=== PATIENT | male | born 1985 | race Caucasian/White ===

== ENCOUNTER 2025-04-24 22:50 | Observation (INO) | payer OTHER, SELFPAY ==
--- OUTSIDE RECORDS SUMMARY | 2025-04-24 05:49 | XMS_ITS | Continuity of Care Document ---
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 Name Role Phone Titi Amaya MD Unavailable Unavailable Allergies, Adverse Reactions, Alerts Substance Reaction Status Criticality No Known Allergies Active No Inform ation Procedures Procedure Date Offic/outpt E&m New Moderate Advance Directives Directive Yes / No Effective Date File Name No Information Encounters Encounter Description Practice Location Reason(s) For Visit Diagnoses Date Provider Providers Copied on Encounter [facility], [address] [address], [place], [place], [id number], [place] tel:[phone] [facility] Right upper quadrant painBiliary colic 5 Monique Walls. [address] [place] [address], [id number], [place]. tel:[phone] Offic/outpt E&m New Moderate [facility], [address] [address], [place], [place], [id number], [place] tel:[phone] [facility] GI Symptoms or Concerns (chief complaint) Epigastric painGastroesopha geal reflux disease, unspecified whether esophagitis presentHematoche latanya 5 Monique [address]s. [address] [place] [address], [id number], [place]. tel:[phone] Referring Provider: Referral Self, USE FOR SELF REFERRALS. [facility], [address] [address], [place], [id number], tel:[phone] No Information No Information Referring Provider: Medina Knox MD, [address] [place] [address] [address] [facility] [place], [address]. tel:[phone] Family History Family Member Type Diagnosis Age At Onset Mother Problem (finding) Gallbladder disease Mother Problem (finding) Diverticular disease Son Problem (finding) Asthma Immunizations Vaccine Date Status Comments SARS-COV-2 (COVID-19) vaccin e, mRNA, spike protein, LNP, preservative free, 30 mcg/0.3mL dose administered Note: [facility] bi-direct ional interface ; Source: Other Registry Influenza, [place] [facility] Kidney, subunit, quadrivalent, injectable, preservative free administered Note: [facility] bi-directional interface ; Source: Other Registry SARS-COV-2 (COVID-19) vaccin e, mRNA, spike protein, LNP, preservative free, 30 mcg/0.3mL dose administered Note: [facility] bi-direct ional interface ; Source: Other Registry SARS-COV-2 (COVID-19) vaccin e, mRNA, spike protein, LNP, preservative free, 30 mcg/0.3mL dose administered Note: [facility] bi-direct ional interface ; Source: Other Registry Influenza, live, quadrivalen t, intranasal administered Note: [facility] bi-direct ional interface ; Source: Other Registry Influenza, live, trivalent, intranasal administered Note: [facility] bi-direct ional interface ; Source: Other Registry tetanus and diphtheria toxoi ds, adsorbed, preservative free, for adult use (5 Lf of tetanus toxoid and 2 Lf of diphtheria toxoid) administered Note: [facility] bi-direct ional interface ; Source: Other Registry Influenza, split virus, trivalent, injectable, contains preservative administered Note: [facility] bi-direct ional interface ; Source: Other Registry measles, mumps and rubella v irus vaccine administered Note: [facility] bi-direct ional interface ; Source: Other Registry diphtheria, tetanus toxoids and pertussis vaccine administered Note: [facility] bi-direct ional interface ; Source: Other Registry diphtheria, tetanus toxoids and pertussis vaccine administered Note: [facility] bi-direct ional interface ; Source: Other Registry measles, mumps and rubella v irus vaccine administered Note: [facility] bi-direct ional interface ; Source: Other Registry diphtheria, tetanus toxoids and pertussis vaccine administered Note: [facility] bi-direct ional interface ; Source: Other Registry diphtheria, tetanus toxoids and pertussis vaccine administered Note: [facility] bi-direct ional interface ; Source: Other Registry diphtheria, tetanus toxoids and pertussis vaccine administered Note: [facility] bi-direct ional interface ; Source: Other Registry Payers Payer name Insurance type C[facility] [employer] [id number] Social History Type Description Quantity Date Captured Comments Sex Male Smoking Status No Information Chief Complaint And Reason For Visit No Information Reason For Referral Reason For Referral No Information Plan Of Treatment Date Type Action Status Appointment Valdo Kothari BOOKED History Of Present Illness Encounter Date Complaint History Of Prese nt Illness GI Symptoms or Concerns This is a healthy 39-year-old male with previous appendectomy at the age of 17 otherwise healthy with main concern of episodic epigastric pain.Patient notes since December 2024 has had episodic significant pain in epigastric region. In December 2024 patient late at night had significant epigastric pain that persisted for about 4 hours leading to EMS evaluation at his home. Pain subsided and did not go to the hospital.Did well until about 3 weeks ago that went to urgent care for again significant sharp pain that woke patient up from sleep. At that time patient had liver panel, CBC, lipase that was entirely normal Chem-8 panel [id number] testing was normal except for creatinine elevated 1.6. No imaging performed. H. pylori test negative.Since that time patient has been 20 mg once daily. Again we will get periodic epigastric pain episodes that will either occur at night or wake him up from sleep.Patient also notes and symptoms of early satiety GERD that is improved with elevation of the head of the bed as well as sleeping on the left side. No dysphagia.Patient has 2 bowel movements a day. Patient notes blood in the bowel movements 2 times a week. This is never been evaluated with any procedure.Patient has some mild intentional weight loss with change of eating.From a social standpoint he does not smoke or use any recreational drugs. Alcohol 1-3 times a week. Functional Status Date Functional Assessmen t No Information Instructions Date Instruction Additional Infor stella --As we discussed ev aluate your symptoms for we will proceed with imaging and endoscopic testing-- Imaging will look primarily your gallbladder as your symptoms are classic for biliary colic or gallbladder stone disease-- If ultrasound shows gallbladder stones we will send you to a general surgeon to have it removed-- We will also evaluate your upper GI symptoms as well as reflux with an upper endoscopy that can also look for other causes of pain in the upper portion of your abdomen-- Lastly, due to the blood in the bowel movements we will proceed with colonoscopy to ensure there is not a large polyp or other cause of blood in the bowel movements-- If ultrasound is negative for stones in the gallbladder I will place a clinic appointment follow-up after the endoscopy Related to Epigastric pain Assessments Type Assessment Date assessment Right upper quadrant pain assessment Biliary colic Patient Care Teams Name Effective Dates (start - stop) Status Members No Information
[2025-04-24 23:05] VITALS: BP 178/121; PULSE 90; RESP 18; TEMP 37.1; O2SAT 99; BMI 39.6
--- NOTE | 2025-04-24 23:12 | ED.GENADULT ---
HPI - General Adult General Time Seen by Provider: 23:13 <Petra Santos MD - Last Filed: 04/26/25 08:40> Date Seen: 04/24/25 <Petra Santos MD - Last Filed: 04/26/25 08:40> Chief complaint: Abdominal Pain <Petra Santos MD - Last Filed: 04/26/25 08:40> Stated complaint: Stomach pain <Petra Santos MD - Last Filed: 04/26/25 08:40> Time Seen by Provider: 04/24/25 23:12 <Petra Santos MD - Last Filed: 04/26/25 08:40> Source: patient and RN notes reviewed <Petra Santos MD - Last Filed: 04/26/25 08:40> Mode of arrival: ambulatory <Petra Santos MD - Last Filed: 04/26/25 08:40> Limitations: no limitations <Petra Santos MD - Last Filed: 04/26/25 08:40> History of Present Illness HPI narrative: This 39-year-old male is coming into the ER accompanied by his dad for recurrent epigastric pain. He states it always has been in his epigastric area. It has woke him up at night. He has found a causal relation to eating meats, specifically beef. He had pizza for lunch today with sausage and then more sausage for dinner tonight. Around 6:00 p.m. after dinner, started having epigastric pain. He did take his omeprazole at 6:00 p.m. which she has been taking. He subsequently took Tylenol, Tums and then Gas-X. His pain has largely subsided. It did last about 4 hours. He is scheduled to have an EGD and colonoscopy with [facility] on May 07. He has been having problems for about 3 weeks, originally presented to an urgent care. They did not think it was is gallbladder causes symptoms were epigastric, was given omeprazole, had labs. He did have a subsequent stool antigen test for H pylori which was negative. He did have an ultrasound of his gallbladder after seeing GI and was negative. He states the GI doctor talked about MRI. We did review that I do not have capacity for MRI and we did review CT imaging. His mom has had her gallbladder out. His only surgery is appendectomy. There are no fevers or chills, no nausea or vomiting, no changes in stools. He does have a long history of GERD which she is typically used a wedge pillow and Tums nightly. He has had some small amounts of bright red blood in his stools for years and he states that [facility] is aware of this. There is a family history of heart disease, hypertension and high ferritin levels which he thinks maybe hemochromatosis. He has never noted any radiation of pain into his chest, no associated palpitations, no irregular heartbeat, no respiratory symptoms with this. <Petra Santos MD - Last Filed: 04/26/25 08:40> Related Data Home medications: Home Medications ?Medication ?Instructions ?Recorded ?Confirmed calcium carbonate (Antacid Ext Str 600 mg PO DAILY 04/24/25 04/24/25 (calcium carb)) omeprazole 20 mg capsule,delayed 20 mg PO DAILY 04/24/25 04/24/25 release simethicone 250 mg capsule (Gas 250 mg PO DAILY PRN 04/24/25 04/24/25 Relief (simethicone)) Previous Rx's ?Medication ?Instructions ?Recorded oxycodone 5 mg capsule 5 mg PO Q6H PRN pain #7 caps 04/25/25 <Petra Santos MD - Last Filed: 04/26/25 08:40> Allergies/adverse reactions: Allergies Allergy/AdvReac Type Severity Reaction Status Date / Time cefaclor (From Ceclor) AdvReac Unknown Verified 04/24/25 23:16 <Petra Santos MD - Last Filed: 04/26/25 08:40> Review of Systems Status of ROS: Reports: 6 or more systems reviewed and unremarkable except as noted in History and below <Petra Santos MD - Last Filed: 04/26/25 08:40> [facility] Medical History: Medical History (Updated 04/25/25 @ 15:29 by Justine M DeBus, PA-C) GERD (gastroesophageal reflux disease) ?K21.9 - Gastro-esophageal reflux disease without esophagitis (ICD-10) Obesity (BMI 35.0-39.9 without comorbidity) ?E66.9 - Obesity, unspecified (ICD-10) Elevated blood pressure reading ?R03.0 - Elevated blood-pressure reading, without diagnosis of hypertension (ICD-10) <Petra Santos MD - Last Filed: 04/26/25 08:40> Surgical History: Surgical History (Updated 04/24/25 @ 23:30 by Petra Santos MD) Status post appendectomy ?Z90.49 - Acquired absence of other specified parts of digestive tract (ICD-10) <Petra Santos MD - Last Filed: 04/26/25 08:40> Social History: Social History (Updated 04/25/25 @ 13:42 by Tosin Stoll MD) Narrative: 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 He does not smoke. He drinks alcohol rarely What is your current living situation?: I presently have a place to live Problems where you live: no known problems Problems where you live details: no known problems In the past 12 months, utilities in danger of being shut off: no In past 12 months, lack of transportation kept you from medical appts, meetings, work, or getting things needed for daily living: no In the past 12 mos, have been you worried that your food would run out before you had money to buy more?: never true In the past 12 mos, the food you bought just didn't last and you didn't have money to buy more?: never true Smoking Status: Never smoker Do you use any of these nicotine containing products: None Second hand tobacco smoke exposure: No How often do you have a drink containing alcohol: 2-3 times a week Alcohol type: hard liquor How many standard drinks containing alcohol do you have on a typical day: 1 or 2 How often do you have six or more drinks on one occasion: Never AUDIT-C Alcohol total score: 3 Non-prescribed substance use: denies use How often does anyone, including family, friends and others, physically hurt you: never How often does anyone, including family, friends and others, insult or talk down to you: never How often does anyone, including family, friends and others, threaten you with harm: never How often does anyone, including family, friends and others, scream or curse at you: never service: No <Petra Santos MD - Last Filed: 04/26/25 08:40> Exam Const: Vital Signs, click to edit/add: Vital Signs - 24 hr 04/24/25 23:05 04/24/25 23:40 04/25/25 00:00 Temperature 98.7 F Pulse Rate [Left P ulse Oximeter] 90 82 Respiratory Rate 18 20 Blood Pressure [Ri ght Upper Arm] 178/121 H 164/94 H Pulse Oximetry 99 99 100 Oxygen Delivery Me thod Room Air Room Air 04/25/25 00:30 Temperature Pulse Rate [Left P ulse Oximeter] 88 Respiratory Rate 16 Blood Pressure [Ri ght Upper Arm] 154/92 H Pulse Oximetry 97 Oxygen Delivery Me thod Room Air Melani is a 39-year-old male that is alert, interactive, no apparent distress. Sclera clear, conjugate gaze, symmetrical facial function. Speak in complete sentences. Neck thicker but supple, no adenopathy. Lungs are clear, good air entry, no wheeze or crackles, no tachypnea, no accessory muscle use. CV regular rate and rhythm, no murmur, normal S1-S2, no S3-S4. Abdomen is currently soft, nontender, nondistended, no organomegaly, rebound or guarding, normal bowel sounds. Note he does point directly to the epigastric area where it does bother him when the pain is there. Patient was ambulatory into the ED of his own accord. Note no jaundice, no scleral icterus. <Petra Santos MD - Last Filed: 04/26/25 08:40> Vital Signs, click to edit/add: Vital Signs - 24 hr 04/24/25 23:05 04/24/25 23:40 04/25/25 00:00 Temperature 98.7 F Pulse Rate [Left P ulse Oximeter] 90 82 Respiratory Rate 18 20 Blood Pressure [Ri ght Upper Arm] 178/121 H 164/94 H Pulse Oximetry 99 99 100 Oxygen Delivery Me thod Room Air Room Air 04/25/25 00:30 Temperature Pulse Rate [Left P ulse Oximeter] 88 Respiratory Rate 16 Blood Pressure [Ri ght Upper Arm] 154/92 H Pulse Oximetry 97 Oxygen Delivery Me thod Room Air <Nusrat Tim MD - Last Filed: 04/25/25 02:48> Documenting provider has reviewed patient's vital signs: yes <Petra Santos MD - Last Filed: 04/26/25 08:40> Course Course ED Course: Patient declines any need for any pain medicine. Did review with him that there still can be biliary dysfunction without stone pathology. We discussed a HIDA scan could be done to evaluate that but is not an emergent test. That is done during daytime hours and is scheduled test. He does want to proceed with a CT. We will do CT abdomen pelvis with IV contrast. Will check full complement of labs. Nursing staff did do an EKG on arrival and that shows no abnormalities of ischemia or infarct. Will also do a troponin. Given his symptoms have been present for over 4 hours now, with improvement, do think a solitary troponin should rule out active ischemia. He understands that even with a normal EKG and troponin tonight, cardiac disease is not completely ruled out. I do feel that his symptoms are much more likely to be bilingual inside sales representative of GI pathology. We did review that it could be something within the stomach or early small-bowel/duodenum. There is a potential for this to be some type of vascular anomaly, not likely to be pancreatitis given that it is resolving rather quickly on its own. <Petra Santos MD - Last Filed: 04/26/25 08:40> Reevaluation(s) Time of Reevaluation #1: 00:23 <Petra Santos MD - Last Filed: 04/26/25 08:40> Reevaluation #1: Updated patient on his CT findings. We did review that he really should pursue further evaluation and management of his reflux as an outpatient at some point. There is also edema in the gallbladder wall. We do not have his liver functions back yet. His white blood count is normal but I do wonder if this could be acalculous cholecystitis developing for him. We are proceeding with a repeat right upper quadrant ultrasound tonight. He does notes that he is getting pain radiating into his upper back now. He has noted that with past episodes that have been more severe. His back is bothering him. Re palpation of his right upper quadrant does reveal some mild tenderness but no rebound or guarding. It is more right upper quadrant than epigastric on my palpation at this time. We did discuss pain management, he would agree to some Toradol as his referred pain into his back is pretty uncomfortable. <Petra Santos MD - Last Filed: 04/26/25 08:40> Time of Reevaluation #2: 02:45 <Nusrat Tim MD - Last Filed: 04/25/25 02:48> Reevaluation #2: Patient was signed out to me by Dr. Hill, please see her note for full details. I followed up on his labs which are all unremarkable including LFTs and lipase. I also reviewed his right upper quadrant ultrasound which is read by Radiology as showing a thickened gallbladder of 5 mm in otherwise no significant findings. I talked with him, he has been having these episodes of fairly severe postprandial epigastric pain with some radiation to the shoulder blade since December. Binh's episode started at 6:00 p.m., as of 3:00 a.m. he is still having some pain although he does not have a concerning abdominal exam. Review of his records from [facility] showed that his ultrasound was read as completely normal on April 23. He has findings of some wall thickening binh, and overall I think his presentation is consistent with likely development of cholecystitis. As such I recommended admission to the hospital, assessment by surgery in the morning. Will keep him NPO, Zosyn IV ordered. He is comfortable with that plan. Discussed with the hospitalist and I will contact General surgery in the morning. <Nusrat Tim MD - Last Filed: 04/25/25 02:48> Vital Signs Vital signs: Initial Vital Signs Temperature 98.7 F 04/24/25 23:05 Temperature Source Temporal Artery Scan 04/24/25 23:05 Pulse Rate 90 04/24/25 23:05 Respiratory Rate 18 04/24/25 23:05 Blood Pressure 178/121 H 04/24/25 23:05 Blood Pressure Mean 140 H 04/24/25 23:05 Blood Pressure Position Sitting 04/24/25 23:05 Pulse Oximetry 99 04/24/25 23:05 Oxygen Delivery Method Room Air 04/24/25 23:05 Vital Signs Temperature 98.7 F 04/24/25 23:05 Pulse Rate 90 04/24/25 23:05 Respiratory Rate 18 04/24/25 23:05 Blood Pressure 178/121 H 04/24/25 23:05 Pulse Oximetry 99 04/24/25 23:05 Oxygen Delivery Method Room Air 04/24/25 23:05 Temperature 98.1 F 04/25/25 11:00 Pulse Rate 72 04/25/25 11:00 Respiratory Rate 16 04/25/25 11:00 Blood Pressure 168/114 H 04/25/25 11:00 Pulse Oximetry 95 04/25/25 11:00 Oxygen Delivery Method Room Air 04/25/25 11:00 <Petra Santos MD - Last Filed: 04/26/25 08:40> Initial Vital Signs Temperature 98.7 F 04/24/25 23:05 Temperature Source Temporal Artery Scan 04/24/25 23:05 Pulse Rate 90 04/24/25 23:05 Respiratory Rate 18 04/24/25 23:05 Blood Pressure 178/121 H 04/24/25 23:05 Blood Pressure Mean 140 H 04/24/25 23:05 Blood Pressure Position Sitting 04/24/25 23:05 Pulse Oximetry 99 04/24/25 23:05 Oxygen Delivery Method Room Air 04/24/25 23:05 Vital Signs Temperature 98.7 F 04/24/25 23:05 Pulse Rate 90 04/24/25 23:05 Respiratory Rate 18 04/24/25 23:05 Blood Pressure 178/121 H 04/24/25 23:05 Pulse Oximetry 99 04/24/25 23:05 Oxygen Delivery Method Room Air 04/24/25 23:05 Temperature 98.1 F 04/25/25 11:00 Pulse Rate 72 04/25/25 11:00 Respiratory Rate 16 04/25/25 11:00 Blood Pressure 168/114 H 04/25/25 11:00 Pulse Oximetry 95 04/25/25 11:00 Oxygen Delivery Method Room Air 04/25/25 11:00 <Nusrat Tim MD - Last Filed: 04/25/25 02:48> Medications Administered Medications: Discontinued Medications Generic Name Dose Route Start Last Admin Trade Name Freq PRN Reason Stop Dose Admin Ketorolac Tromethamine 15 mg 04/25/25 00:25 04/25/25 00:28 Ketorolac 15 Mg/Ml Inj IVP 04/25/25 00:26 15 mg ONCE ONE Administration Omeprazole 40 mg 04/25/25 07:00 04/25/25 07:04 Omeprazole [address] PO 40 mg DAILY@0700 RG Administration Ondansetron HCl 4 mg 04/25/25 02:44 04/25/25 04:28 Ondansetron 2 Mg/Ml Inj IVP 04/25/25 02:45 Not Given ONCE ONE Sodium Chloride 5 ml 04/25/25 09:00 04/25/25 08:41 Sodium Chloride 0.9 % (Flush) 10 Ml Syringe IVF 5 ml BID RG Administration <Petra Santos MD - Last Filed: 04/26/25 08:40> Discontinued Medications Generic Name Dose Route Start Last Admin Trade Name Freq PRN Reason Stop Dose Admin Ketorolac Tromethamine 15 mg 04/25/25 00:25 04/25/25 00:28 Ketorolac 15 Mg/Ml Inj IVP 04/25/25 00:26 15 mg ONCE ONE Administration Omeprazole 40 mg 04/25/25 07:00 04/25/25 07:04 Omeprazole [address] PO 40 mg DAILY@0700 RG Administration Ondansetron HCl 4 mg 04/25/25 02:44 04/25/25 04:28 Ondansetron 2 Mg/Ml Inj IVP 04/25/25 02:45 Not Given ONCE ONE Sodium Chloride 5 ml 04/25/25 09:00 04/25/25 08:41 Sodium Chloride 0.9 % (Flush) 10 Ml Syringe IVF 5 ml BID RG Administration <Nusrat Tim MD - Last Filed: 04/25/25 02:48> Medical Decision Making Lab Data Lab results reviewed: Yes I reviewed the patient's lab results <Petra Santos MD - Last Filed: 04/26/25 08:40> Labs: Lab Results 04/24/25 Range/Units 23:35 WBC 10.54 (4.50-11.00) K/uL RBC 5.18 (4.30-5.90) m/uL Hgb 16.1 (13.5-17.5) gm/dL Hct 45.1 (37.0-53.0) % MCV 87 (80-100) fL MCH 31 (26-34) pg MCHC 36 (32-36) gm/dL RDW Coeff of Thai 12.4 (11.5-15.5) % Plt Count 176 (140-440) K/uL Neut % (Auto) 76.1 H (42.0-72.0) % Lymph % (Auto) 15.1 L (20-44) % Bradford % (Auto) 6.1 (0.0-11.0) % Eos % (Auto) 1.4 (0.0-7.0) % Baso % (Auto) 0.4 (0.0-3.0) % Neut # (Auto) 8.00 H (1.7-7.0) K/uL Lymph # (Auto) 1.60 (0.90-2.90) K/uL Bradford # (Auto) 0.60 (0.00-0.90) K/UL Eos # (Auto) 0.15 (0.00-0.50) K/uL Baso # (Auto) 0.04 (0.00-0.30) K/uL Abs Immat Gran (auto) 0.10 (0.00-0.30) K/uL Imm/Tot Granulo (auto) 0.9 % Sodium 140 (135-149) mmol/L Potassium 3.6 (3.6-5.1) mmol/L Chloride 103 (96-114) mmol/L Carbon Dioxide 26 (20-32) mmol/L Anion Gap 11 (7-15) mEq/L BUN 22 (5-24) mg/dL Creatinine 1.2 (0.5-1.5) mg/dL Estimated Creat Clear 93.40 Estimated GFR 79 ml/min Glucose 120 H (60-115) mg/dL Lactate 1.3 (0.5-1.9) mmol/L Calcium 9.6 (8.4-10.6) mg/dL Total Bilirubin 1.2 (0.1-1.5) mg/dL Direct Bilirubin 0.1 (0.0-0.5) mg/dL AST 34 (12-35) U/L ALT 50 (4-50) U/L Alkaline Phosphatase 47 (40-150) U/L Troponin I < 0.01 (0.01-0.04) ng/mL C-Reactive Protein < 0.5 L (0.5-1.0) mg/dL Total Protein 7.6 (6.0-8.3) g/dL Albumin 4.8 (3.3-5.0) g/dL Lipase 170 (23-300) U/L <Perta Santos MD - Last Filed: 04/26/25 08:40> Lab Results 04/24/25 Range/Units 23:35 WBC 10.54 (4.50-11.00) K/uL RBC 5.18 (4.30-5.90) m/uL Hgb 16.1 (13.5-17.5) gm/dL Hct 45.1 (37.0-53.0) % MCV 87 (80-100) fL MCH 31 (26-34) pg MCHC 36 (32-36) gm/dL RDW Coeff of Thai 12.4 (11.5-15.5) % Plt Count 176 (140-440) K/uL Neut % (Auto) 76.1 H (42.0-72.0) % Lymph % (Auto) 15.1 L (20-44) % Bradford % (Auto) 6.1 (0.0-11.0) % Eos % (Auto) 1.4 (0.0-7.0) % Baso % (Auto) 0.4 (0.0-3.0) % Neut # (Auto) 8.00 H (1.7-7.0) K/uL Lymph # (Auto) 1.60 (0.90-2.90) K/uL Bradford # (Auto) 0.60 (0.00-0.90) K/UL Eos # (Auto) 0.15 (0.00-0.50) K/uL Baso # (Auto) 0.04 (0.00-0.30) K/uL Abs Immat Gran (auto) 0.10 (0.00-0.30) K/uL Imm/Tot Granulo (auto) 0.9 % Sodium 140 (135-149) mmol/L Potassium 3.6 (3.6-5.1) mmol/L Chloride 103 (96-114) mmol/L Carbon Dioxide 26 (20-32) mmol/L Anion Gap 11 (7-15) mEq/L BUN 22 (5-24) mg/dL Creatinine 1.2 (0.5-1.5) mg/dL Estimated Creat Clear 93.40 Estimated GFR 79 ml/min Glucose 120 H (60-115) mg/dL Lactate 1.3 (0.5-1.9) mmol/L Calcium 9.6 (8.4-10.6) mg/dL Total Bilirubin 1.2 (0.1-1.5) mg/dL Direct Bilirubin 0.1 (0.0-0.5) mg/dL AST 34 (12-35) U/L ALT 50 (4-50) U/L Alkaline Phosphatase 47 (40-150) U/L Troponin I < 0.01 (0.01-0.04) ng/mL C-Reactive Protein < 0.5 L (0.5-1.0) mg/dL Total Protein 7.6 (6.0-8.3) g/dL Albumin 4.8 (3.3-5.0) g/dL Lipase 170 (23-300) U/L <Nusrat Tim MD - Last Filed: 04/25/25 02:48> Imaging Data CT scan - abdomen: Attestation: I have reviewed the pertinent imaging results. <Petra Santos MD - Last Filed: 04/26/25 08:40> Radiologist's impression: Patient: MELANI COSTA Facility:?[facility] Patient ID:?[id number] Site Patient ID:?[id number]. Site :?1985 Study:?CT-Abdomen/Pelvis W/ISOVUE 370 147CC-04/24/2025 11:51:10 PM Ordering Physician:?Tom Lambert Final Report: INDICATION: Rec epigastric abdominal pain TECHNIQUE: CT Abdomen and pelvis with i.v. contrast. Coronal and sagittal reformats were obtained. CONTRAST: 147 mL Isovue 370 COMPARISON: None FINDINGS: Lower chest: There is a 1 mm nodule present in the anterior right lower lobe, too small to further characterize. Liver: Unremarkable. Spleen: Unremarkable. Pancreas: Unremarkable. Gallbladder: Mild gallbladder wall edema is seen. Kidney: Unremarkable. No kidney or ureteral stones or obstruction seen. Adrenal: Unremarkable. Bowel: The distal esophagus is fluid-filled and mildly distended, likely due to gastroesophageal reflux. Seyl-bl-qucvobtx fluid distention of the stomach is noted. There is a gasless density near the ileocecal valve without any apparent obstruction of the terminal ileum. This is most likely due to small bowel contents incompletely mixing with cecal stool. Previous appendectomy noted with no significant appendiceal stump identified. The appendix is not identified. Vascular: Unremarkable. Lymph: Unremarkable. Peritoneum: Unremarkable. No pneumoperitoneum is seen. No significant ascites is noted. Pelvis: Unremarkable. Soft tissue: Unremarkable. Bone: Unremarkable for age. IMPRESSIONS: 1. The distal esophagus is fluid-filled and mildly distended, likely due to gastroesophageal reflux. 2. Mild gallbladder wall edema is seen. Assessment with ultrasound may be helpful to exclude cholecystitis. Dictated by Zeus Thomas MD @ 04/24/2025 11:57:51 PM Please note that all CT scans at this facility use dose modulation, iterative reconstruction, and/or weight-based dosing when appropriate to reduce radiation dose to as low as reasonably achievable. Dictated by: Zeus Thomas MD @ 04/24/2025 23:58:00 (Electronic Signature) <Petra Santos MD - Last Filed: 04/26/25 08:40> US - abdomen: Attestation: I have reviewed the pertinent imaging results. <Nusrat Tim MD - Last Filed: 04/25/25 02:48> Radiologist's impression: Patient: Melani Costa MR#: [id number] : 1985 Acct:[id number] Loc: ED Service Date: 04/25/[address]: Ordering Physician: Nusrat Tim M.D. Date of Service: 04/25/25 Procedure(s): US abdomen limited Accession Number(s): [id number] cc: Nusrat Tim M.D.; Provider,Not a Local~ For Patients: As a result of the Century Cures Act, medical imaging exams and procedure reports are released immediately into your electronic medical record. You may view this report before your referring provider. If you have questions, please contact your health care provider. INDICATION: Abdominal pain TECHNIQUE: Ultrasound abdomen limited. Sonographic images of the right upper quadrant were obtained using gómez-scale and color Doppler images. COMPARISON: 04/24/2025 FINDINGS: The sensitivity and specificity of the exam are moderately limited by the patient`s body habitus and overlying bowel gas. Liver: The liver parenchyma is normal in echotexture. Gallbladder: No gallstones or sludge seen in the lumen. Mild gallbladder wall thickening is noted measuring 5 mm. No pericholecystic fluid is present. No sonographic Wenier???s sign is present. Common bile duct: The common bile duct is not well visualized. No intrahepatic biliary ductal dilatation seen. Pancreas: The visualized portions of the pancreatic head and body are normal in appearance. Right Kidney: 12 cm. No hydronephrosis or ureterectasis is seen. Vascular: The visualized abdominal aorta and IVC are unremarkable. The visualized portal vein is patent with normal anterograde flow. IMPRESSION: 1. Mild gallbladder wall thickening is noted measuring 5 mm. This is nonspecific and can be seen with acute or chronic cholecystitis, hepatitis, cirrhosis, or congestive heart failure and clinical correlation is recommended. <Nusrat Tim MD - Last Filed: 04/25/25 02:48> ECG Data Attestation: I personally reviewed and interpreted this ECG as follows: (Normal sinus rhythm, 71 beats per minute. No evidence for any ischemia or infarct.) <Petra Santos MD - Last Filed: 04/26/25 08:40> Prior ECG tracings: not available for review <Petra Santos MD - Last Filed: 04/26/25 08:40> Discharge Plan Discharge Clinical Impression: Cholecystitis <Petra Santos MD - Last Filed: 04/26/25 08:40> Patient Disposition: Admitted As Observation <Petra Santos MD - Last Filed: 04/26/25 08:40> Condition: Stable <Petra Santos MD - Last Filed: 04/26/25 08:40> Activity Level: Activity as Tolerated <Petra Santos MD - Last Filed: 04/26/25 08:40> Activity as Tolerated <Nusrat Tim MD - Last Filed: 04/25/25 02:48> Discharge Diet: Other <Petra Santos MD - Last Filed: 04/26/25 08:40> Other <Nusrat Tim MD - Last Filed: 04/25/25 02:48> Diet Detail: bland <Petra Santos MD - Last Filed: 04/26/25 08:40> bland <Nusrat Tim MD - Last Filed: 04/25/25 02:48>
--- NOTE | 2025-04-24 23:26 | CRLHL7_ITS ---
For Patients: As a result of the Century Cures Act, medical imaging exams and procedure reports are released immediately into your electronic medical record. You may view this report before your referring provider. If you have questions, please contact your health care provider. INDICATION: Rec epigastric abdominal pain TECHNIQUE: CT Abdomen and pelvis with i.v. contrast. Coronal and sagittal reformats were obtained. CONTRAST: 147 mL Isovue 370 COMPARISON: None FINDINGS: Lower chest: There is a 1 mm nodule present in the anterior right lower lobe, too small to further characterize. Liver: Unremarkable. Spleen: Unremarkable. Pancreas: Unremarkable. Gallbladder: Mild gallbladder wall edema is seen. Kidney: Unremarkable. No kidney or ureteral stones or obstruction seen. Adrenal: Unremarkable. Bowel: The distal esophagus is fluid-filled and mildly distended, likely due to gastroesophageal reflux. [id number] fluid distention of the stomach is noted. There is a gasless density near the ileocecal valve without any apparent obstruction of the terminal ileum. This is most likely due to small bowel contents incompletely mixing with cecal stool. Previous appendectomy noted with no significant appendiceal stump identified. The appendix is not identified. Vascular: Unremarkable. Lymph: Unremarkable. Peritoneum: Unremarkable. No pneumoperitoneum is seen. No significant ascites is noted. Pelvis: Unremarkable. Soft tissue: Unremarkable. Bone: Unremarkable for age. IMPRESSIONS: 1. The distal esophagus is fluid-filled and mildly distended, likely due to gastroesophageal reflux. 2. Mild gallbladder wall edema is seen. Assessment with ultrasound may be helpful to exclude cholecystitis. Dictated by Zeus Thomas MD @ 04/24/2025 11:57:51 PM Please note that all CT scans at this facility use dose modulation, iterative reconstruction, and/or weight-based dosing when appropriate to reduce radiation dose to as low as reasonably achievable. Dictated by: Zeus Thomas MD @ 04/24/2025 23:58:00 (Electronically Signed)
[2025-04-24 23:40] VITALS: O2SAT 99
[2025-04-24 23:42] LABS: Lactate* 1.3 mmol/L (0.5-1.9)
[2025-04-24 23:44] LABS: Basophils Absolute Auto 0.04 K/uL (0.00-0.30); Basophils Percent Auto 0.4 % (0.0-3.0); Eosinophils Absolute Auto 0.15 K/uL (0.00-0.50); Eosinophils Percent Auto 1.4 % (0.0-7.0); Hematocrit 45.1 % (37.0-53.0); Hemoglobin* 16.1 gm/dL (13.5-17.5); Immature Granulocytes Pct Auto 0.9 %; Lymphocytes Percent Auto 15.1 % (20-44); Mean Corpuscular HGB Conc 36 gm/dL (32-36); Mean Corpuscular Hemoglobin 31 pg (26-34); Mean Corpuscular Volume 87 fL (80-100); Monocytes Percent Auto 6.1 % (0.0-11.0); Neutrophils Percent Auto 76.1 % (42.0-72.0); Platelet Count* 176 K/uL (140-440); RDW Coefficient of Variation % 12.4 % (11.5-15.5); Red Blood Count 5.18 m/uL (4.30-5.90); Slide Review Reflex No; White Blood Count* 10.54 K/uL (4.50-11.00)
--- OUTSIDE RECORDS SUMMARY | 2025-04-24 23:53 | XMS_ITS | Clinical Summary ---
Author Organization [facility] Address [address], [place] [address] Care Team Providers Care Family Services Worker Name Role Phone Unavailable Primary Care Provider Unavailabl e Source Comments You are receiving this document as you are listed as the primary care provider,follow-up provider, or the patient has been referred to you for consultation.This is in compliance with the Medicare and[facility] Cent[facility]aid EHR Incentive Program,which states Providers who transition their patient to another setting of careor provider of care or refers their patient to another provider of care shouldprovide summary care record for each transition of care or referral. [facility] Allergies No known active allergies Medications WEGOVY 1 MG/0.5ML pen injection Inject 0.5 mL (1 mg) subcutaneously once every week. 04/06/20 23 Active ondansetron (ZOFRAN-ODT) 8 MG disintegrating tablet Take 1 Tablet (8 mg) by mouth every 8 hours. 05/18/20 23 Active OZEMPIC, 0.25/0.5 MG/DOSE, 2 MG/1.5ML injection Inject subcutaneously. 01/12/20 23 Active WEGOVY 1.7 MG/0.75ML pen injection SMARTSI.7 Milligram(s) SUB-Q Once a Week 05/08/20 23 Active benzonatate (TESSALON) 200 MG capsule Take 1 Capsule (200 mg) by mouth. 01/31/20 24 Active Active Problems No known active problems Immunizations Immunization Administration Dates Next Due Influenza LAIV3 2-49 years (Flumist) 12/01/2012 Social History Tobacco Use Types Packs/Day Years Used Date Smoking Tobacco: Never Smokeless Tobacco: Never Tobacco Cessation:Counseling Given: Not Answered Sex and Gender Information Value Date Recorded Sex Assigned at Not on file Legal Sex Male 5:15 AM CDT Gender Identity Not on file Sexual Orientation Not on file Last Filed Vital Signs Vital Sign Reading Time Taken Comments Blood Pressure 187/99 02/03/2024 12:49 PM CDT Pulse 76 02/03/2024 12:49 PM CDT Temperature 37 C (98.6 F) 02/03/2024 12:49 PM CDT Respiratory Rate 18 02/03/2024 12:49 PM CDT Oxygen Saturation 99% 02/03/2024 12:49 PM CDT Inhaled Oxygen Concentration - - Weight - - Height - - Body Mass Index - - Plan of Treatment Health Maintenance Due Date Last Done Comments Hep C Screening (Preventive Services) 1985 HIV Screening (Preventive Services) 2001 Adult Preventive Visit 2003 HepB Vaccine (1) 2004 DTaP/Tdap/Td Vaccine (6 - Tdap) 08/21/2010 08/20/2010, 11/27/1997, 06/24/1990, Additional history exists Cholesterol 2020 COVID-19 Vaccine ( season) 2024 09/07/2021, 03/08/2021, 02/15/2021 Influenza Vaccine (Season Ended) 2025 09/07/2021, 09/25/2015, 12/01/2012, Additional history exists Zoster/Shingles Vaccine (1 of 2) 2035 IPV (Polio) Vaccine Completed 06/24/1990, 07/24/1987, 03/27/1986, Additional history exists HPV Vaccine Aged Out No longer eligi ble based on patient's age to complete this topic HepA Vaccine Aged Out No longer eligi ble based on patient's age to complete this topic Hib Vaccine Aged Out No longer eligi ble based on patient's age to complete this topic MCV4 Vaccine Aged Out No longer eligi ble based on patient's age to complete this topic Meningococcal B Vaccine Aged Out No l onger eligible based on patient's age to complete this topic Pneumococcal Vaccine Aged Out No long er eligible based on patient's age to complete this topic Insurance [employer] RETIRE [facility] [place] [address]
--- OUTSIDE RECORDS SUMMARY | 2025-04-24 23:53 | XMS_ITS | Clinical Summary ---
Author Organization [facility] Address [address] [place] [address] Care Team Providers Care Wind Up Worker Name Role Phone No Ref-Primary, Physician Primary Care Provider Allergies No known active allergies Social History Tobacco Use Types Packs/Day Years Used Date Smoking Tobacco: Never Assessed Adolescent Education Answer Date Record ed Getting School Help Needed Not on file 08/13 Sex and Gender Information Value Date Recorded Sex Assigned at Not on file Legal Sex Male 11:54 AM CDT Gender Identity Not on file Sexual Orientation Not on file Last Filed Vital Signs Vital Sign Reading Time Taken Comments Blood Pressure 132/81 06/17/2019 1:32 PM CDT Pulse 77 06/17/2019 1:32 PM CDT Temperature 36.7 C (98 F) 06/17/2019 12:02 PM CDT Respiratory Rate 16 06/17/2019 12:02 PM CDT Oxygen Saturation 96% 06/17/2019 1:33 PM CDT Inhaled Oxygen Concentration - - Weight - - Height - - Body Mass Index - - Plan of Treatment Not on file Insurance [employer] Advance Directives For more information, please contact: [phone] Documents on File Type Date Recorded Patient Janitorial Assistant Expl anation Advance Directives and Living Will 07/14/2023 Health Care Directiv e 06/25/2023 Healthcare Agents on File Name Relationship Healthcare Agent [facility] Communication Og Pickett Health Care Agent Care Teams Wind Up Worker Relationship Specialty Start Date End Date No Ref-Primary, Physician PCP - General 06/17/19
--- OUTSIDE RECORDS SUMMARY | 2025-04-24 23:53 | XMS_ITS | Clinical Summary ---
Author Organization [facility] Address [address] [place] [address] Care Team Providers Care Charter Boat Operator Name Role Phone Pcp, No Primary Care Provider Unavailabl e Allergies Active Allergy Reactions Criticality Noted Date Comments Cefaclor *Unknown - Childhood Rxn 08/19/2018 Medications methylPREDNISolo ne (MEDROL, EZIO,) 4 mg tabletIndication s:Fever, unspecified fever cause,SOB (shortness of breath),Bronchit is Use as directed 1 Package 8 Active albuterol HFA 90 mcg/actuation inhalerIndicatio ns:Bronchitis,SO B (shortness of breath) Inhale 1-2 Puffs by mouth every 4 hours if needed. 1 Inhaler 8 Active omeprazole 20 mg tabletIndication s:Upper abdominal pain Take 1 Tablet (20 mg) by mouth once daily before a meal. 60 Tablet 5 Active Active Problems No known active problems Encounters Date Type Department Care Team Description 04/20/2025 1:45 PM CDT Ancillary Procedure [facility] [address] [facility] [address] [place] [address] 04/19/2025 Travel 04/17/2025 Transcribe Orders [facility] [place] [phone] Titi Regalado MD 03/28/2025 3:55 PM CDT Office Visit [email or web address] Urgent Care [address] [facility] [address] [place] [address] Medina Knox MD Abdominal Pain; Blood In Stool 03/28/2025 3:00 PM CDT Orders Only [facility] [address] [place] [address] Lab 03/28/2025 Travel from Last 3 Months Social History Tobacco Use Types Packs/Day Years Used Date Smoking Tobacco: Never Smokeless Tobacco: Never Alcohol Use Standard Drinks/Week Comments Yes 2 (1 standard drink = 0.6 oz pur e alcohol) Social Connections Answer Date Recorded Do you often feel lonely or isolated from those around you? 0 03/28/2025 Financial Resource Strain Answer Date R ecorded Difficulty of Paying Living Expenses 3 03/28/2025 Difficulty of Paying Living Expenses Not on file 03/28/2025 Food Insecurity Answer Date Recorded Do you worry your food will run out before you are able to buy more? 1 03/28/2025 Transportation Needs Answer Date Record ed Does lack of transportation keep you from medica l appointments? 1 03/28/2025 Does lack of transportation keep you from work, meetings or getting things that you need? 1 03/28/2025 Housing Stability Answer Date Recorded What is your housing situation today? 1 03/28/2025 Utilities Answer Date Recorded Do you have trouble paying f or utilities (for example, heat, electricity, water, phone)? 1 03/28/2025 Sex and Gender Information Value Date Recorded Sex Assigned at Male 03/28/2025 5:57 PM CDT Legal Sex Male 2:24 PM CDT Gender Identity Male 03/28/2025 5:57 PM CDT Sexual Orientation Straight 03/28/2025 5: 57 PM CDT Obstetrics History Last Filed Vital Signs Vital Sign Reading Time Taken Comments Blood Pressure 166/106 03/28/2025 4:10 PM CDT Pulse 76 03/28/2025 4:10 PM CDT Temperature 36.1 C (96.9 F) 03/28/2025 4:00 PM CDT Respiratory Rate 16 03/28/2025 4:00 PM CDT Oxygen Saturation 99% 03/28/2025 4:00 PM CDT Inhaled Oxygen Concentration - - Weight 140.4 kg (309 lb 9.6 oz) 03/28/2025 4:00 PM CDT Height 185.4 cm (6' 1) 03/28/2025 4:00 PM CDT Body Mass Index 40.85 03/28/2025 4:00 PM CDT Plan of Treatment Health Maintenance Due Date Last Done Comments Tdap 1996 Depression screening for age 12+ 1997 HIV for age 15-65 2000 Hepatitis C screening for ag e 18-79 2003 Hepatitis B series for 19+ ( 1 of 3 - 19+ 3-dose series) 2004 Tetanus booster 2005 Lipids for age 35-44 2020 COVID-19 vaccine series ( season) 2024 09/07/2021, 03/08/2021, 02/15/2021 Influenza Vaccine (Season Ended) 2025 BMI (ht and wt on same day) for age 18+ 03/28/2026 03/28/2025, 08/19/2018 Pneumococcal series for age 6-49 Aged Out No longer eligible b ased on patient's age to complete this topic Procedures Procedure Name Priority Date/Time Associated Diagnosis Comments US ABDOMEN LIMITED GALLBLADDER Routine 04/20/2025 1:44 PM CDT Epigastric pain Gastroesophageal reflux disease, unspecified whether esophagitis present Hematochezia H PYLORI ANTIGEN,STOOL Routine 03/28/2025 11:00 PM CDT Upper abdominal pain MT BLOOD COUNT COMPLETE AUTO&AUTO DIFRNTL WBC Routine 03/28/2025 4:35 PM CDT Upper abdominal pain ISTAT CHEM 8 Routine 03/28/2025 4:34 PM CDT Upper abdominal pain HEPATIC FUNCTION PANEL Routine 03/28/2025 4:33 PM CDT Upper abdominal pain LIPASE Routine 03/28/2025 4:33 PM CDT Upper abdominal pain from Last 3 Months Results * US ABDOMEN LIMITED GALLBLADDER (04/20/2025 1:44 PM CDT) Anatomical Region Laterality Modality Abdomen Ultrasound 04/23/2025 2:14 PM CDT Impressions 04/23/2025 2:14 PM CDT Normal ultrasound of the gallbladder and common bile. Dictated by Obdulio Mendiola MD @ 04/23/2025 2:14:43 PM (Electronically Signed) Narrative 04/23/2025 2:14 PM CDT For Patients: As a result of the Cures Act, medical imaging exams and procedure reports are released immediately into your electronic medical record. You may view this report before your referring provider. If you have questions, please contact your health care provider. INDICATION: Epigastric pain. Gastroesophageal reflux disease. Hematochezia. TECHNIQUE: Ultrasound abdomen limited. Sonographic images of the gallbladder and common bile duct were obtained using gómez-scale and color Doppler images. COMPARISON: None. FINDINGS: Gallbladder: No stones, wall abnormality or pericholecystic fluid. No sonographic Weiner`s sign. Common bile duct: Normal caliber common bile duct measuring 4 mm. Procedure Note Obdulio Mendiola MD - 04/23/2025 For Patients: As a result of the Cures Act, medical imagingexams and procedure reports are released immediately into your electronicmedical record. You may view this report before your referring provider.If you have questions, please contact your health care provider. INDICATION: Epigastric pain. Gastroesophageal reflux disease. Hematochezia. TECHNIQUE: Ultrasound abdomen limited. Sonographic images of the gallbladder andcommon bile duct were obtained using gómez-scale and color Dopplerimages. COMPARISON: None. FINDINGS: Gallbladder: No stones, wall abnormality or pericholecystic fluid. Nosonographic Weiner`s sign. Common bile duct: Normal caliber common bile duct measuring 4 mm. IMPRESSION: Normal ultrasound of the gallbladder and common bile. Dictated by Obdulio Mendiola MD @ 04/23/2025 2:14:43 PM (Electronically Signed) us Titi Regalado MD Final Resu lt * H PYLORI ANTIGEN,STOOL (03/28/2025 11:00 PM CDT) HELICOBACTER PYLORI AG, EIA, STOOL SEE NOTE [facility] Comment: HELICOBACTER PYLORI AG, EIA, STOOL Micro Number: [id number] Test Status: Final Specimen Source: Stool/feces Specimen Quality: Adequate H.pylori Ag: Not Detected Antimicrobials, proton pump inhibitors, and bismuth preparations inhibit H. pylori and ingestion up to two weeks prior to testing may cause false negative results. If clinically indicated the test should be repeated on a new specimen obtained two weeks after discontinuing treatment. Reference Range: Not Detected Stool STOOL SPECIMEN / Unknown 03/28/2025 11:00 PM CDT 03/29/2025 9:46 AM CDT Medina Knox MD MICROBIOLOGY Final Result [employer] [facility] [address] [place] [address], [facility] [address] [place] [id number] * CBC & DIFF [61453.0] (03/28/2025 4:35 PM CDT) WHITE BLOOD CELL COUNT 6.8 3.8 - 10.8 Thousand/u L [facility] ( RED BLOOD CELL COUNT 5.18 4.20 - 5.80 Million/uL [facility] ( HEMOGLOBIN 16.0 13.2 - 17.1 g/dL [facility] ( HEMATOCRIT 45.2 38.5 - 50.0 % [facility] ( MCV 87.3 80.0 - 100.0 fL [facility] ( MCH 30.9 27.0 - 33.0 pg [facility] ( MCHC 35.4 32.0 - 36.0 g/dL [facility] ( Comment: For adults, a slight decrease in the calculated MCHC value (in the range of 30 to 32 g/dL) is most likely not clinically significant; however, it should be interpreted with caution in correlation with other red cell parameters and the patient's clinical condition. RDW 12.7 11.0 - 15.0 % [facility] ( PLATELET COUNT 159 140 - 400 Thousand/u L [facility] ( MPV 10.8 7.5 - 12.5 fL [facility] ( ABSOLUTE NEUTROPHILS 3,686 1,500 - 7,800 cells/uL [facility] ( ABSOLUTE LYMPHOCYTES 2,135 850 - 3,900 cells/uL [facility] ( ABSOLUTE MONOCYTES 707 200 - 950 cells/uL [facility] ( ABSOLUTE EOSINOPHILS 245 15 - 500 cells/uL [facility] ( ABSOLUTE BASOPHILS 27 0 - 200 cells/uL [facility] ( NEUTROPHILS 54.2 % [facility] ( LYMPHOCYTES 31.4 % [facility] ( MONOCYTES 10.4 % [facility] ( EOSINOPHILS 3.6 % [facility] ( BASOPHILS 0.4 % [facility] ( Blood BLOOD SPECIMEN / Unknown 03/28/2025 4:35 PM CDT 03/28/2025 4:35 PM CDT Narrative [facility] - 03/28/2025 4:46 PM CDT SPLIT 03/28/2025 FROM [id number] us Medina Knox MD HEMATOLOGY Final Result [facility] [address] [place] [address], [facility] ( [address] [place] [address] * (ABNORMAL) CHEM8 BMP ISTAT [[id number]] (03/28/2025 4:34 PM CDT) POCT, SODIUM, ISTAT 141 138 - 146 mmol/L [facility] ( POCT, POTASSIUM, ISTAT 4.0 3.5 - 4.9 mmol/L [facility] ( POCT, CHLORIDE, ISTAT 104 98 - 109 mmol/L [facility] ( POCT, CARBON DIOXIDE, ISTAT 27 24 - 29 mmol/L [facility] ( POCT, GLUCOSE ISTAT 97 70 - 105 mg/dL [facility] ( POCT, UREA NITROGEN (BUN) ISTAT 18 8 - 26 mg/dL [facility] ( POCT,CREATININ E, ISTAT 1.6(H) 0.6 - 1.3 mg/dL [facility] ( POCT, CALCIUM, IONIZED, ISTAT 4.9 4.5 - 5.3 mg/dL [facility] ( Blood BLOOD SPECIMEN / Unknown 03/28/2025 4:34 PM CDT 03/28/2025 4:34 PM CDT Narrative [facility] - 03/28/2025 4:50 PM CDT SPLIT 03/28/2025 FROM [id number] MULTIPLE TESTING PRIORITIES; ROUTINE TESTING TO FOLLOW. Medina Knox MD CHEMISTRY Final Result [facility] [address] [place] [address], [facility] ( [address] [place] [address] * LIPASE (03/28/2025 4:33 PM CDT) LIPASE 54 7 - 60 U/L [facility] Blood BLOOD SPECIMEN / Unknown 03/28/2025 4:33 PM CDT 03/28/2025 4:33 PM CDT Narrative [facility] - 03/29/2025 5:48 AM CDT MULTIPLE TESTING PRIORITIES; ROUTINE TESTING TO FOLLOW. us Medina Knox MD CHEMISTRY Final Result [facility] [address] [address], [facility] [address] [facility] [place] [address] * LIVER PANEL (HEPATIC FUNCTION PANEL) (03/28/2025 4:33 PM CDT) PROTEIN, TOTAL 7.1 6.1 - 8.1 g/dL [facility] ALBUMIN 4.8 3.6 - 5.1 g/dL [facility] GLOBULIN 2.3 1.9 - 3.7 g/dL (calc) [facility] ALBUMIN/GLOBULIN RATIO 2.1 1.0 - 2.5 (calc) [facility] BILIRUBIN, TOTAL 0.9 0.2 - 1.2 mg/dL [facility] BILIRUBIN, DIRECT 0.1 < OR = 0.2 mg/dL [facility] BILIRUBIN, INDIRECT 0.8 0.2 - 1.2 mg/dL (calc) [facility] ALKALINE PHOSPHATASE 51 36 - 130 U/L [facility] AST 18 10 - 40 U/L [facility] ALT 32 9 - 46 U/L [facility] Blood BLOOD SPECIMEN / Unknown 03/28/2025 4:33 PM CDT 03/28/2025 4:33 PM CDT Narrative [facility] - 03/29/2025 5:48 AM CDT MULTIPLE TESTING PRIORITIES; ROUTINE TESTING TO FOLLOW. Medina Knox MD CHEMISTRY Final Result [facility] [address] [facility] [place] [address], [facility] [address] [facility] [place] [address] from Last [address] [facility] [employer] Care Teams Charter Boat Operator Relationship Specialty Start Date End Date Pcp, No . PCP - General 08/19/18
--- OUTSIDE RECORDS SUMMARY | 2025-04-24 23:53 | XMS_ITS | Clinical Summary ---
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 For routine questions regarding patient records, call [phone] during business hours, M-F 8:00 AM - 5:00 PM Central Time. Record requests for emergency care only can be directed to [phone] at any time.[facility] Allergies Active Allergy Reactions Criticality Noted Date Comments Cefaclor Other (see comments) 08/19/2018 As a child Medications * This document contains information received from the source organization and may not represent a complete record from that organization. 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 Pruritus Ani 05/22/2022 Immunizations Immunization Administration Dates Next Due DTP 06/24/1990, 7,03/27/1986,1985,1985 Influenza, Injectable, Mdck, Preservative Free, Quadrivalent 09/07/2021 Influenza, Seasonal, Injectable 12/05/2008 MMR 11/27/1997,02/05/1987 Polio, Unspecified 06/24/1990, 7,03/27/1986,1985,1985 Td (Adult), adsorbed 11/27/1997 Td Preservative Free (TENIVA C, DECAVAC) 08/20/2010 influenza LAIV (Nasal) (2 ye ars through 49 years) 09/25/2015,12/01/2012 influenza trivalent LAIV (Na ramana) (2 years through 49 years) 12/01/2012 Family History Medical History Relation Name Comments Hypertension Brother 1 Nelda Obesity Brother 2 Anuj Depression Brother 3 Saurabh Hypertension Brother 4 Nelda Kothari Sleep apnea Brother 4 Nelda Kothari Migraines Brother 5 Anuj Taye Depression Father Og Kothari Obesity Father Og Kothari Sleep apnea Father Og Kothari Lymphoma Father's Sister 1 Lymphoma Father's Sister 2 Leticia [place] Coronary artery disease Maternal Grandfather Kyle Andrade rson Heart attack Maternal Grandfather Kyle Garza Skin cancer Maternal Grandmother Shelbie Garza Hyperlipidemia Mother Tania Kothari Hypertension Mother Tania Kothari Thyroid disease Mother Tania Kothari Prostate cancer Paternal Grandfather Larry Kothari ear ly 70's Migraines Paternal Grandmother Naheed Taye Hypertension Sister 1 Cindy Obesity Sister 1 Cindy No Known Problems Sister 2 Vanessa Hypertension Sister 3 Cindy Marr ADD Son Subhash Kothari Aneurysm Neg Hx Colon cancer Neg Hx Diabetes Neg Hx Thrombosis Neg Hx Relation Name Status Comments Brother 1 Nelda Alive Brother 2 Anuj Alive Brother 3 Saurabh Alive Brother 4 Nelda Kothari Brother 5 Anuj Kothari Father Og Kothari Alive Father's Sister 1 Alive Father's Sister 2 Leticia [place] Maternal Grandfather yKle Garza Maternal Grandmother Shelbie Garza Mother Tania Kothari Alive Paternal Grandfather Larry Kothari Paternal Grandmother Naheed Taye Sister 1 Cindy Alive Sister 2 Vanessa Alive Sister 3 Cindy Marr Son Subhash Kothari Social History Tobacco Use Types Packs/Day Years Used Date Smoking Tobacco: Never Passive Smoke Exposure: Never Smokeless Tobacco: Never Tobacco Cessation:Counseling Given: Not Answered Alcohol Use Standard Drinks/Week Comments Yes 5 (1 standard drink = 0.6 oz pur e alcohol) Humiliation, Afraid, Rape, and Kick questionnair e Answer Date Recorded Within the last year, have y ou been afraid of your partner or ex-partner? No 02/22/2023 Within the last year, have y ou been humiliated or emotionally abused in other ways by your partner or ex-partner? No Within the last year, have y ou been kicked, hit, slapped, or otherwise physically hurt by your partner or ex-partner? No 02/22/2023 Within the last year, have y ou been raped or forced to have any kind of sexual activity by your partner or ex-partner? No 02/22/2023 Social Connection and Isolat ion Panel [NHANES] Answer Date Recorded In a typical week, how many times do you talk on the phone with family, friends, or neighbors? More than three times a week 02/22/2023 How often do you get togethe r with friends or relatives? Twice a week 02/22/2023 How often do you attend chur ch or mormon services? More than 4 times per year 02/22/2023 Do you belong to any clubs o r organizations such as yazdanism groups, unions, fraternal or athletic groups, or school groups? Yes 02/22/2023 How often do you attend meet ings of the clubs or organizations you belong to? More than 4 times per year 02/22/2023 Are you , , di vorced, , never , or living with a partner? 02/22/2023 AUDIT-C Answer Date Recorded Q1: How often do you have a drink containing alc ohol? 2-3 times a week 02/22/2023 Q2: How many drinks containi ng alcohol do you have on a typical day when you are drinking? 1 or 2 02/22/2023 Q3: How often do you have si x or more drinks on one occasion? Never 02/22/2023 Overall Financial Resource Strain (CARDIA) Answe r Date Recorded How hard is it for you to pa y for the very basics like food, housing, medical care, and heating? Not hard at all 02/22/2023 PHQ-2 Answer Date Recorded PHQ-2 Score 2 11/12/2022 [facility] - Occupational Stress Questionnaire Answer Date Recorded Do you feel stress - tense, restless, nervous, or anxious, or unable to sleep at night because your mind is troubled all the time - these days? Only a little 02/22/2023 Exercise Vital Sign Answer Date Recorde d On average, how many days pe r week do you engage in moderate to strenuous exercise (like a brisk walk)? 0 days 02/22/2023 On average, how many minutes do you engage in exercise at this level? 0 min 02/22/2023 Hunger Vital Sign Answer Date Recorded Within the past 12 months, y ou worried that your food would run out before you got the money to buy more. Never true 02/23/20 23 Within the past 12 months, t he food you bought just didn't last and you didn't have money to get more. Never true 02/22/2023 PRAPARE - Transportation Answer Date Re corded In the past 12 months, has l ack of transportation kept you from medical appointments or from getting medications? No 01/2023 In the past 12 months, has l ack of transportation kept you from meetings, work, or from getting things needed for daily living? No 02/22/2023 Housing Stability Vital Sign Answer Jimbo e Recorded In the last 12 months, was t here a time when you were not able to pay the mortgage or rent on time? No 02/22/2023 In the last 12 months, how many places have you lived? 2 02/22/2023 In the last 12 months, was t here a time when you did not have a steady place to sleep or slept in a group home (including now)? No 02/22/2023 Depression Answer Date Recor ded PHQ-9 Total Score (max 27) 8 11/12 Nutrition Answer Date Recorded On average, how many serving s of fruits and vegetables do you eat per day (serving size is equal to 1 cup or approximately the size of a tennis ball)? 0-1 02/22/2023 Dental Answer Date Recorded Dental: Regular Dentist Yes 05/18/20 Employment Answer Date Recorded Employment status Employed and actively working without restrictions 02/22/2023 Education Answer Date Recorded What is the highest level of school you have completed or the highest degree you have received? 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 Not on file Not on file Not on file Last Filed Vital Signs Vital Sign Reading Time Taken Comments Blood Pressure 148/97 06/07/2023 3:45 PM CDT Pulse 94 06/07/2023 3:45 PM CDT Temperature 36.8 C (98.2 F) 06/07/2023 12:16 PM CDT Respiratory Rate 18 06/07/2023 11:31 AM CDT Oxygen Saturation 97% 06/07/2023 3:45 PM CDT Inhaled Oxygen Concentration - - Weight 125 kg (275 lb 9.2 oz) 06/07/2023 11:18 A M CDT Height 188.6 cm (6' 2.25) 08/04/2022 9:15 AM CD T Body Mass Index 35.14 08/04/2022 9:15 AM CDT Plan of Treatment Health Maintenance Due Date Last Done Comments Hepatitis B Vaccines (1 of 3 - 19+ 3-dose series) 2004 DTaP,Tdap,and Td Vaccines (6 - Tdap) 08/21/2010 08/20/2010, 11/27/1997, 06/24/1990, Additional history exists Fasting Glucose for Diabetes Screening 06/07/2024 06/07/2023, 05/21/2022, 09/24/2016 COVID-19 Vaccine ( season) 2024 09/07/2021, 03/08/2021, 02/15/2021 Influenza Vaccine (#1) 2024 , 09/25/2015, 12/01/2012, Additional history exists Depression Screening (Annual PHQ-2) 11/22/2024 Lipid (Cholesterol) Screening 05/21/2027 05/21/2022, 09/24/2016 IPV Vaccines Completed 06/24/1990, 12/1986, 03/27/1986, Additional history exists HIV Screening Completed 05/21/2022 Hepatitis C Screening Completed 05/21/2022 HPV Vaccines Aged Out No longer eligi ble based on patient's age to complete this topic Pneumococcal vaccine (0-49 years) Aged Out No longer eligible based on patient's age to complete this topic Procedures Procedure Name Priority Date/Time Associated Diagnosis Comments BASIC METABOLIC PANEL, S/P STAT 06/07/2023 11:51 AM CDT HCV AB SCRN W/REFLEX TO HCV PCR, S Routine 05/21/2022 8:02 AM CDT [facility] Testing Adult HIV-1/-2 AG AND AB SCREEN, PLASMA Routine 05/21/2022 8:02 AM CDT [facility] Testing Adult Human Immunodeficiency Virus Screening LIPID PANEL, S Routine 05/21/2022 8:02 AM CDT [facility] Testing Adult Cardiac Vascular Disease Screening Screening Lipid from Last 3 Months or Most Recently Relevant to Health Maintenance Results * (ABNORMAL) Basic Metabolic Panel (06/07/2023 11:51 AM CDT) Potassium, P 3.5(L) 3.6 - 5.2 mmol/L 06/07/2023 12:11 PM CDT [facility] Sodium, P 142 135 - 145 mmol/L 06/07/2023 12:11 PM CDT [facility] Chloride, P 106 98 - 107 mmol/L 06/07/2023 12:11 PM CDT [facility] Bicarbonate, P 26 22 - 29 mmol/L 06/07/2023 12:11 PM CDT [facility] Anion Gap, P 10 7 - 15 06/07/2023 12:11 PM CDT [facility] BUN (Blood Urea Nitrogen), P 11 8 - 24 mg/dL 06/07/2023 12:11 PM CDT [facility] Creatinine 1.38(H) 0.74 - 1.35 mg/dL 06/07/2023 12:11 PM CDT [facility] Estimated GFR (eGFR) 68 >=60 mL/min/BSA 06/07/2023 12:11 PM CDT [facility] Comment: Estimated GFR calculated using the 2020 CKD_EPI creatinine equation. Calcium, Total, P 9.3 8.6 - 10.0 mg/dL 06/07/2023 12:11 PM CDT [facility] Glucose, P 111 70 - 140 mg/dL 06/07/2023 12:11 PM CDT [facility] Blood (Blood, Venous) 06/07/2023 11:51 AM CDT 06/07/2023 11:55 AM CDT us Annamarie Galvan APRN.N.P., D.N.P. LAB BLOOD AD D-ON Final Result Performing Organization Address [facility] de Phone Number [facility] [address] [place] [address], [facility] [address] [place] [address] * HIV-1/-2 Ag and Ab Screen, Plasma (05/21/2022 8:02 AM CDT) [facility] HIV-1/-2 Ag and Ab Screen, P Negative Negative 05/21/2022 12:03 PM CDT [facility] Comment: Negative result does not rule out HIV infection. If exposure to HIV infection occurred <14 days ago, contact the laboratory to request addition of HIV-1 RNA detection / quantification test (HIVQN). Blood (Blood, Venous) 05/21/2022 8:02 AM CDT 05/21/2022 10:38 AM CDT us Una Majano M.D., M.P.H. LAB MICROBIOLOGY - BLOOD ORDERABLES Final Result Performing Organization Address City/[facility]/ZIP Co de Phone Number [facility] [address] [place] [address] [facility] Dept. of Laboratory Medicine and Pathology [address] [place] [address] * (ABNORMAL) Lipid Panel (05/21/2022 8:02 AM CDT) Triglycerides 107 mg/dL 05/21/2022 9:03 AM CDT [facility] Comment: ----REFERENCE VALUE---- Normal: <150 mg/dL Borderline High: 150-199 mg/dL High: 200-499 mg/dL Very High: > or =500 mg/dL Cholesterol, Total 211(H) mg/dL 2021 9:03 AM CDT [facility] Comment: ----REFERENCE VALUE---- Desirable: < 200 mg/dL Borderline High: 200 - 239 mg/dL High: > or = 240 mg/dL Cholesterol, LDL, Calculated 135(H) mg/dL 05/21/2022 9:03 AM CDT [facility] Comment: ----REFERENCE VALUE---- Desirable: <100 mg/dL Above Desirable: 100-129 mg/dL Borderline High: 130-159 mg/dL High: 160-189 mg/dL Very High: >=190 mg/dL ----ADDITIONAL INFORMATION---- LDL cholesterol calculated using the Bryson/NIH equation. Cholesterol, HDL, S 57 >=40 mg/dL 05/21/2022 9:03 AM CDT [facility]TL Cholesterol, Non-HDL, Calculated 154 mg/dL 05/21/2022 9:03 AM CDT [facility] Comment: ----REFERENCE VALUE---- Desirable: <130 mg/dL Above Desirable: 130-159 mg/dL Borderline High: 160-189 mg/dL High: 190-219 mg/dL Very High: > or =220 mg/dL Fasting (8 HR or more) Yes 05/21/2022 8:37 AM CDT DTL Blood (Blood, Venous) 05/21/2022 8:02 AM CDT 05/21/2022 8:37 AM CDT Una Majano M.D., M.P.H. LAB BLOOD ADD-ON Final Result [facility] [address] [place] [address], [facility] [address] [place] [address] * HCV Ab Scrn w/Reflex to HCV PCR, Serum (05/21/2022 8:02 AM CDT) HCV Ab Screen, S Negative Negative 05/21/2022 11:49 AM CDT [facility] Comment:Namunf-wq-cozrti rat io is <1.00. Blood (Blood, Venous) 05/21/2022 8:02 AM CDT 05/21/2022 10:38 AM CDT us Una Majano M.D., M.P.H. LAB MICROBIOLOGY - BLOOD ORDERABLES Final Result [facility] [address] [place] [address] [facility] Dept. of Laboratory Medicine and Pathology [address] 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
--- OUTSIDE RECORDS SUMMARY | 2025-04-24 23:53 | XMS_ITS | Patient Health Record ---
Author Organization [facility] Address [address] [address] Care Team Providers Care Exercise Instructor Name Role Phone Stacey GUTIÉRREZ, Rocío Unavailable Reason For Referral No Information Plan Of Treatment No Information Insurance Providers Payer Name Payer Address Payer Phone Subscriber Number Group Number Insured Name Patient Relationship to Insured Coverage Start Date Coverage End Date [facility] [address] [address] [place] [address] [id number] Valdo Kothari Self - patient is the insured
[2025-04-25] VITALS: BP 164/94; PULSE 82; RESP 20; O2SAT 100
[2025-04-25 00:07] LABS: Albumin* 4.8 g/dL (3.3-5.0); Chloride* 103 mmol/L (96-114); Potassium* 3.6 mmol/L (3.6-5.1); Sodium* 140 mmol/L (135-149)
[2025-04-25 00:10] LABS: Alanine Aminotransferase* 50 U/L (4-50); Alkaline Phosphatase* 47 U/L (40-150); Anion Gap 11 mEq/L (7-15); Aspartate Amino Transferase* 34 U/L (12-35); Bilirubin Direct* 0.1 mg/dL (0.0-0.5); Bilirubin Total* 1.2 mg/dL (0.1-1.5); Blood Urea Nitrogen* 22 mg/dL (5-24); Calcium* 9.6 mg/dL (8.4-10.6); Carbon Dioxide* 26 mmol/L (20-32); Creatinine* 1.2 mg/dL (0.5-1.5); Estimated Glomerular Filt Rate 79 ml/min; Glucose* 120 mg/dL (60-115); Lipase* 170 U/L (23-300); Total Protein* 7.6 g/dL (6.0-8.3)
--- NOTE | 2025-04-25 00:14 | CRLHL7_ITS ---
For Patients: As a result of the Century Cures Act, medical imaging exams and procedure reports are released immediately into your electronic medical record. You may view this report before your referring provider. If you have questions, please contact your health care provider. INDICATION: Abdominal pain TECHNIQUE: Ultrasound abdomen limited. Sonographic images of the right upper quadrant were obtained using gómez-scale and color Doppler images. COMPARISON: 04/24/2025 FINDINGS: The sensitivity and specificity of the exam are moderately limited by the patient`s body habitus and overlying bowel gas. Liver: The liver parenchyma is normal in echotexture. Gallbladder: No gallstones or sludge seen in the lumen. Mild gallbladder wall thickening is noted measuring 5 mm. No pericholecystic fluid is present. No sonographic Weiner???s sign is present. Common bile duct: The common bile duct is not well visualized. No intrahepatic biliary ductal dilatation seen. Pancreas: The visualized portions of the pancreatic head and body are normal in appearance. Right Kidney: 12 cm. No hydronephrosis or ureterectasis is seen. Vascular: The visualized abdominal aorta and IVC are unremarkable. The visualized portal vein is patent with normal anterograde flow. IMPRESSION: 1. Mild gallbladder wall thickening is noted measuring 5 mm. This is nonspecific and can be seen with acute or chronic cholecystitis, hepatitis, cirrhosis, or congestive heart failure and clinical correlation is recommended. Dictated by Zeus Thomas MD @ 04/25/2025 1:57:05 AM Dictated by: Zeus Thomas MD @ 04/25/2025 01:57:14 (Electronically Signed)
[2025-04-25 00:21] LABS: C Reactive Protein* < 0.5 mg/dL (0.5-1.0)
[2025-04-25 00:23] LABS: Troponin I* < 0.01 ng/mL (0.01-0.04)
[2025-04-25] MEDS: KETOROLAC 15 MG/ML inj IVP (00:28)
[2025-04-25 00:30] VITALS: BP 154/92; PULSE 88; RESP 16; O2SAT 97
--- NOTE | 2025-04-25 02:42 | W.PM.THH&P_ITS ---
Telehealth- H&P: HPI History of Present Illness Time Seen by Provider: 03:27 Date Seen: 04/25/25 Chief complaint: Stomach pain Narrative: Valdo Kothari is seen as an Interactive Telehealth visit. Valdo Kothari is a 39 year old male h/o GERD presents with epigastic pain that is described as dull and constant. Pain episode started in December, self resolved and returned again in February. Recently patient has been experiencing this dull ache 1-2 times per week. When at its worse, pain will radiate to his back. No burning. no nausea. He notes pain will wake him up from sleep or occurs in the evening. Often occurs after eating a fatty meat, particularly sausage, steak, or beef brisket. Today pain occured several hours after eating sausage pizza. He has sensation of abdominal bloating. He feels he would get relief if he has a BM but is unable to have one. He took gas X and TUMS prior to coming to ED. His abdominal pain improved. At this time, his pain is less than 1/10 on pain scale. Patient is taking omeprazole 20mg po daily per Urgent care visit that was done several weeks ago HE was recently seen by GI and is scheduled for both an upper and lower endoscopy on May 04 h/o GERD. At its worse, patient would have shortness of breath and ashthma symptoms. He now sleeps on a wedge pillow and takes 2 TUMS at bedtime. no melena +hematochezia (blood tingled stool) 1-2 times per month. GI is aware and plan to perform a colonoscopy no burning no odynophagia no regurgitation no nausea no vomiting no fever, although feels hot when pain is severe no diaphoresis no weight loss no weight gain no wheezing no chest pain social history no smoking ETOH 2 shots 2-3 times per week; none in the past 6-8 weeks no recreational drug use Family history 3 sons; one has ADHD Review of Systems 2 Status of ROS: Reports: 10 or more systems reviewed and unremarkable except as noted in History and below [facility] Surgical History (Updated 04/24/25 @ 23:30 by Petra Santos MD) Status post appendectomy ?Z90.49 - Acquired absence of other specified parts of digestive tract (ICD- 10) Social History Smoking Status: Never smoker Do you use any of these nicotine containing products: None Second hand tobacco smoke exposure: Yes How often do you have a drink containing alcohol: never AUDIT-C Alcohol total score: 0 Non-prescribed substance use: denies use service: No Meds Home Medications and Allergies Home Medications ?Medication ?Instructions ?Recorded ?Confirmed ?Type calcium carbonate (Antacid Ext Str 600 mg PO DAILY 02/1304/24/25 History (calcium carb)) omeprazole 20 mg capsule,delayed 20 mg PO DAILY 04/24/25 History release simethicone 250 mg capsule (Gas 250 mg PO DAILY PRN 04/24/25 History Relief (simethicone)) Allergies Allergy/AdvReac Type Severity Reaction Status Date / Time cefaclor (From [facility]) AdvReac Unknown Verified 04/24/25 23:16 Exam Narrative Exam Narrative: Physical Exam GENERAL: ?vital signs reviewed, well developed and nourished, in no distress HEENT: pupils are equal round and reactive to light, extraocular movements are grossly within normal limits and oral mucosa is moist. NECK: Supple without lymphadenopathy or thyromegaly according to nursing staff examination observation HEART: Regular rate and rhythm without any rubs, murmurs, or gallops. LUNGS: Clear to auscultation bilaterally with good air movement throughout ABDOMEN: Observation from nurse assisted exam, abdomen appears soft, nontender, and nondistended with Positive bowel sounds noted. EXTREMITIES: Strength and sensation is observed to be grossly within normal limits in the upper and lower extremities.? No focal strength deficit is observed. SKIN:? Observed warm and dry with color normal Const Vital Signs, click to edit/add: Vital Signs - 24 hr 04/24/25 23:05 04/24/25 23:40 04/25/25 00:00 Temperature 98.7 F Pulse Rate [Left Pulse Oximeter] 90 82 Respiratory Rate 18 20 Blood Pressure [Right Upper Arm] 178/121 H 164/94 H Pulse Oximetry 99 99 100 Oxygen Delivery Method Room Air Room Air 04/25/25 00:30 Temperature Pulse Rate [Left Pulse Oximeter] 88 Respiratory Rate 16 Blood Pressure [Right Upper Arm] 154/92 H Pulse Oximetry 97 Oxygen Delivery Method Room Air Hospitalist - H&P: Result Labs Labs: Short CBC 04/24/25 Range/Units 23:35 WBC 10.54 (4.50-11.00) K/uL Hgb 16.1 (13.5-17.5) gm/dL Hct 45.1 (37.0-53.0) % Plt Count 176 (140-440) K/uL BMP 04/24/25 23:35 Sodium 140 Potassium 3.6 Chloride 103 Carbon Dioxide 26 BUN 22 Creatinine 1.2 Glucose 120 H Calcium 9.6 Cardiac Enzymes 04/24/25 Range/Units 23:35 Troponin I < 0.01 (0.01-0.04) ng/mL Liver Function 04/24/25 Range/Units 23:35 Total Bilirubin 1.2 (0.1-1.5) mg/dL Direct Bilirubin 0.1 (0.0-0.5) mg/dL AST 34 (12-35) U/L ALT 50 (4-50) U/L Alkaline Phosphatase 47 (40-150) U/L Albumin 4.8 (3.3-5.0) g/dL Imaging CT scan - abdomen: Radiologist's impression: Bowel: The distal esophagus is fluid-filled and mildly distended, likely due to gastroesophageal reflux. [id number]-[id number] fluid distention of the stomach is noted. There is a gasless density near the ileocecal valve without any apparent obstruction of the terminal ileum. This is most likely due to small bowel contents incompletely mixing with cecal stool. Previous appendectomy noted with no significant appendiceal stump identified. The appendix is not identified. Vascular: Unremarkable. Lymph: Unremarkable. Peritoneum: Unremarkable. No pneumoperitoneum is seen. No significant ascites is noted. Pelvis: Unremarkable. Soft tissue: Unremarkable. Bone: Unremarkable for age. IMPRESSIONS: 1. The distal esophagus is fluid-filled and mildly distended, likely due to gastroesophageal reflux. 2. Mild gallbladder wall edema is seen. Assessment with ultrasound may be helpful to exclude cholecystitis. US - abdomen: Radiologist's impression: FINDINGS: The sensitivity and specificity of the exam are moderately limited by the patient`s body habitus and overlying bowel gas. Liver: The liver parenchyma is normal in echotexture. Gallbladder: No gallstones or sludge seen in the lumen. Mild gallbladder wall thickening is noted measuring 5 mm. No pericholecystic fluid is present. No sonographic Weiner???s sign is present. Common bile duct: The common bile duct is not well visualized. No intrahepatic biliary ductal dilatation seen. Pancreas: The visualized portions of the pancreatic head and body are normal in appearance. Right Kidney: 12 cm. No hydronephrosis or ureterectasis is seen. Vascular: The visualized abdominal aorta and IVC are unremarkable. The visualized portal vein is patent with normal anterograde flow. IMPRESSION: 1. Mild gallbladder wall thickening is noted measuring 5 mm. This is nonspecific and can be seen with acute or chronic cholecystitis, hepatitis, cirrhosis, or congestive heart failure and clinical correlation is recommended. Assessment and Plan Assessment and plan (1) GERD (gastroesophageal reflux disease): Status: Acute Plan 39y/o M h/o GERD presents with epigastric pain likely due to uncontrolled GERD vs cholecystitis (less likely) vs intestinal dysmotility such as achalasia (unlikely given lack of regurgitation, relation with sausage/fatty meats, and lack weight loss) vs unknown. Imaging shows dilated esophagus and dilated stomach with contents. There is also some findings small bowel/cecal findings. Imaging also shows a slightly thickened gallbladder, No pericholycystic fluid, and negative Weiner's sign. Labs are unremarkable for biliary obstruction. Per discussion with ED, patient had a GI visit and imaging was unremarkable for gallbladder pathology. Given the new thickened wall, may be helpful to conduct a HIDA study. Depending on results, we may need to consult general surgery. Obtaining results of GI workup may also be helpful??? --order HIDA scan --pain is now resolved but will continue Tylenol prn --continue TUMS --order omeprazole 40mg po daily --outpatient vs inpatient endoscopy to inspect the esophageal/stomach dilatation; may be helpful to check for H. pylori --patient received zosyn in ED. Since there are no stones, sludge, pain, fever, leukocytosis, abnormal labs, pericholecystic fluid collection, intrabiliary dilation or CBD dilatation, will hold off on continuing abx at this time. If patient becomes toxic in appearance, will start antibiotics. Full code per discussion Total Time Spent Total Time Spent: camera time started 327a camera time ended 352a Telehealth: Statement Statement Telehealth Visit: Today's History and Physical is provided via interactive telehealth by Lisa Shook MD.? Patient is located at [facility].? Provider is located at [facility].? Nursing staff assisted with the patient's exam. The visit being done today meets criteria for a telehealth visit and the patient or patient?s parent/guardian is aware the visit is a telehealth visit. Camera Start Time: 03:27 Camera End Time: 03:52
[2025-04-25 03:09] VITALS: BP 157/119; PULSE 74; RESP 16; TEMP 37.2; O2SAT 97
--- NOTE | 2025-04-25 05:44 | PC.NURSE ---
Pt is alert and oriented x3. Afebrile. Pt reports 1/10 pain in abdomen, pt declined pain medications but is aware and knows to ask for them if his pain starts to rise again. Pt is up ad delbert tolerating an NPO diet.
[2025-04-25 07:00] VITALS: BP 154/100; PULSE 72; RESP 18; TEMP 36.9; O2SAT 95
[2025-04-25] MEDS: OMEPRAZOLE 20 MG CAPSULE DR 40 MG PO (07:04)
[2025-04-25 08:31] LABS: Basophils Absolute Auto 0.06 K/uL (0.00-0.30); Basophils Percent Auto 0.7 % (0.0-3.0); Eosinophils Absolute Auto 0.22 K/uL (0.00-0.50); Eosinophils Percent Auto 2.4 % (0.0-7.0); Hematocrit 44.3 % (37.0-53.0); Hemoglobin* 15.5 gm/dL (13.5-17.5); Immature Granulocytes Abs Auto 0.01 K/uL (0.00-0.30); Immature Granulocytes Pct Auto 0.1 %; Lymphocytes Absolute Auto 2.28 K/uL (0.90-2.90); Lymphocytes Percent Auto 25.2 % (20-44); Mean Corpuscular HGB Conc 35 gm/dL (32-36); Mean Corpuscular Hemoglobin 31 pg (26-34); Mean Corpuscular Volume 88 fL (80-100); Monocytes Percent Auto 9.2 % (0.0-11.0); Neutrophils Absolute Auto 5.65 K/uL (1.7-7.0); Neutrophils Percent Auto 62.4 % (42.0-72.0); Platelet Count* 163 K/uL (140-440); RDW Coefficient of Variation % 12.5 % (11.5-15.5); Red Blood Count 5.06 m/uL (4.30-5.90); White Blood Count* 9.05 K/uL (4.50-11.00)
[2025-04-25 08:35] LABS: Slide Review Reflex No
[2025-04-25] MEDS: SODIUM CHLORIDE 0.9 % (FLUSH) 10 ML SYRINGE 5 ML IVF (08:41)
[2025-04-25 08:57] LABS: Albumin* 4.3 g/dL (3.3-5.0); Chloride* 106 mmol/L (96-114); Potassium* 4.3 mmol/L (3.6-5.1); Sodium* 141 mmol/L (135-149)
[2025-04-25 09:00] LABS: Alanine Aminotransferase* 41 U/L (4-50); Alkaline Phosphatase* 43 U/L (40-150); Anion Gap 8 mEq/L (7-15); Aspartate Amino Transferase* 26 U/L (12-35); Blood Urea Nitrogen* 18 mg/dL (5-24); Carbon Dioxide* 27 mmol/L (20-32); Creatinine* 1.2 mg/dL (0.5-1.5); Estimated Glomerular Filt Rate 79 ml/min; Lipase* 148 U/L (23-300); Total Protein* 6.8 g/dL (6.0-8.3)
[2025-04-25 09:01] LABS: Calcium* 9.8 mg/dL (8.4-10.6); Glucose* 100 mg/dL (60-115)
[2025-04-25 10:05] VITALS: BP 168/114; PULSE 72; RESP 16; TEMP 36.7; O2SAT 95
[2025-04-25 11:00] VITALS: BP 168/114; PULSE 72; RESP 16; TEMP 36.7; O2SAT 95
--- NOTE | 2025-04-25 12:20 | P.GSCN_ITS ---
History of Present Illness Consult details Date Seen: 04/25/25 Consult date: 04/25/25 Narrative: The patient is a 39-year-old male who presented to the emergency department overnight with epigastric pain. He states that last evening around 6 PN he developed upper abdominal pain before he ate dinner. He then ate dinner but is not sure if his pain got worse, however it persisted. He tried taking Tylenol, Tums and Gas-X but it did not help. He felt as though he had a large amount of gas in his upper abdomen. The pain does not radiate to the right or left side. He felt very bloated with this discomfort. Eventually became so persistent that he came to the emergency department. He did not have any nausea with this pain. No change in bowel habits. He does have a history of reflux and takes omeprazole for this. He is not having any heartburn symptoms at this time. This morning his pain is gone. He states that he has had these types of symptoms for some time. He began having symptoms in December. His 1st episode was severe and EMS was called. By the time they arrived his pain and improve so he did not go into the hospital. This episode occurred in the middle the night. In February he began having more frequent symptoms, 1-2 times per week. He would have this epigastric type pain usually in the evening close to bedtime. Occasionally it will wake him at 2:30 a.m. He thinks that his symptoms may be worse if he eats meat. Yesterday he states that he did have pizza for lunch but sometimes he can eat pizza and it does not bother him. He never has nausea or vomiting with the discomfort. Again no change in his bowel habits. He previously would take Tums at bedtime and sleep on a wedge for reflux. He used to have issues with regurgitation but did not have particularly significant pain with reflux. He did see gastroenterology last week. A gallbladder ultrasound was obtained which was normal. He states that an MRI was suggested and he is scheduled for upper and lower endoscopy on May 04. As mentioned he did have history of regurgitation and takes medication for reflux but the omeprazole has not changed his upper abdominal symptoms. He denies sensation of food getting stuck. [facility] Medical History (Updated 04/25/25 @ 13:41 by Tosin Stoll MD) GERD (gastroesophageal reflux disease) ?K21.9 - Gastro-esophageal reflux disease without esophagitis (ICD-10) Obesity (BMI 35.0-39.9 without comorbidity) ?E66.9 - Obesity, unspecified (ICD-10) Elevated blood pressure reading ?R03.0 - Elevated blood-pressure reading, without diagnosis of hypertension (ICD-10) Surgical History (Updated 04/24/25 @ 23:30 by Petra Santos MD) Status post appendectomy ?Z90.49 - Acquired absence of other specified parts of digestive tract (ICD- 10) Social History (Updated 04/25/25 @ 13:42 by Tosin Stoll MD) Narrative: 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 He does not smoke. He drinks alcohol rarely What is your current living situation?: I presently have a place to live Problems where you live: no known problems Problems where you live details: no known problems In the past 12 months, utilities in danger of being shut off: no In past 12 months, lack of transportation kept you from medical appts, meetings, work, or getting things needed for daily living: no In the past 12 mos, have been you worried that your food would run out before you had money to buy more?: never true In the past 12 mos, the food you bought just didn't last and you didn't have money to buy more?: never true Smoking Status: Never smoker Do you use any of these nicotine containing products: None Second hand tobacco smoke exposure: No How often do you have a drink containing alcohol: 2-3 times a week Alcohol type: hard liquor How many standard drinks containing alcohol do you have on a typical day: 1 or 2 How often do you have six or more drinks on one occasion: Never AUDIT-C Alcohol total score: 3 Non-prescribed substance use: denies use How often does anyone, including family, friends and others, physically hurt you : never How often does anyone, including family, friends and others, insult or talk down to you: never How often does anyone, including family, friends and others, threaten you with harm: never How often does anyone, including family, friends and others, scream or curse at you: never service: No Meds Home Medications and Allergies Home Medications ?Medication ?Instructions ?Recorded ?Confirmed ?Type calcium carbonate (Antacid Ext Str 600 mg PO DAILY 02/1304/24/25 History (calcium carb)) omeprazole 20 mg capsule,delayed 20 mg PO DAILY 04/24/25 History release simethicone 250 mg capsule (Gas 250 mg PO DAILY PRN 04/24/25 History Relief (simethicone)) Allergies Allergy/AdvReac Type Severity Reaction Status Date / Time cefaclor (From [facility]) AdvReac Unknown Verified 04/24/25 23:16 Exam Narrative: Exam Narrative: General appearance: Alert, cooperative, and in no distress Eyes: PERRLA, eye lids clear, and sclera white HENT Head: Normocephalic Ears: External ears normal Pulmonary: Breathing nonlabored on room air Cardiovascular Heart: Regular rate Extremities: warm and well perfused Gastrointestinal Abdominal: no obvious scars. Patient is nontender to palpation in the upper abdomen. Nontender to palpation in the right upper quadrant. Negative Weiner sign Musculoskeletal: Extremities: Upper: Both upper extremities have normal joint range of motion and intact strength. Lower: Both lower extremities have normal joint range of motion and intact strength. Skin: Normal skin color, texture, and turgor. Neurologic: No focal deficits Psychiatric: Alert, oriented, cooperative, normal affect. Const: Vital Signs, click to edit/add: Vital Signs - 24 hr 04/24/25 23:05 04/24/25 23:40 04/25/25 00:00 Temperature 98.7 F Pulse Rate [Left P ulse Oximeter] 90 82 Pulse Rate [Pulse Oximeter] Respiratory Rate 18 20 Blood Pressure [Le ft Arm] Blood Pressure [Ri ght Upper Arm] 178/121 H 164/94 H Pulse Oximetry 99 99 100 Oxygen Delivery Me thod Room Air Room Air 04/25/25 00:30 04/25/25 03:09 04/25/25 03:09 Temperature 98.9 F Pulse Rate [Left P ulse Oximeter] 88 Pulse Rate [Pulse Oximeter] 74 Respiratory Rate 16 16 Blood Pressure [Le ft Arm] 157/119 H Blood Pressure [Ri ght Upper Arm] 154/92 H Pulse Oximetry 97 97 97 Oxygen Delivery Me thod Room Air Room Air Room Air 04/25/25 07:00 04/25/25 07:00 04/25/25 10:05 Temperature 98.4 F 98.1 F Pulse Rate [Left P ulse Oximeter] Pulse Rate [Pulse Oximeter] 72 72 72 Respiratory Rate 18 18 16 Blood Pressure [Le ft Arm] 154/100 H 168/114 H Blood Pressure [Ri ght Upper Arm] Pulse Oximetry 95 95 Oxygen Delivery Me thod Room Air 04/25/25 11:00 Temperature 98.1 F Pulse Rate [Left P ulse Oximeter] Pulse Rate [Pulse Oximeter] 72 Respiratory Rate 16 Blood Pressure [Le ft Arm] 168/114 H Blood Pressure [Ri ght Upper Arm] Pulse Oximetry 95 Oxygen Delivery Me thod Room Air Results Labs Labs: Abnormal lab results 04/24/25 Range/Units 23:35 Neut % (Auto) 76.1 H (42.0-72.0) % Lymph % (Auto) 15.1 L (20-44) % Neut # (Auto) 8.00 H (1.7-7.0) K/uL Glucose 120 H (60-115) mg/dL C-Reactive Protein < 0.5 L (0.5-1.0) mg/dL Diabetes panel 04/24/25 04/25/25 Range/Units 23:35 08:20 Sodium 140 141 (135-149) mmol/L Potassium 3.6 4.3 (3.6-5.1) mmol/L Chloride 103 106 (96-114) mmol/L Carbon Dioxide 26 27 (20-32) mmol/L BUN 22 18 (5-24) mg/dL Creatinine 1.2 1.2 (0.5-1.5) mg/dL Glucose 120 H 100 (60-115) mg/dL Calcium 9.6 9.8 (8.4-10.6) mg/dL AST 34 26 (12-35) U/L ALT 50 41 (4-50) U/L Alkaline Phosphatase 47 43 (40-150) U/L Total Protein 7.6 6.8 (6.0-8.3) g/dL Albumin 4.8 4.3 (3.3-5.0) g/dL Calcium panel 04/24/25 04/25/25 Range/Units 23:35 08:20 Calcium 9.6 9.8 (8.4-10.6) mg/dL Albumin 4.8 4.3 (3.3-5.0) g/dL Pituitary panel 04/24/25 04/25/25 Range/Units 23:35 08:20 Sodium 140 141 (135-149) mmol/L Potassium 3.6 4.3 (3.6-5.1) mmol/L Chloride 103 106 (96-114) mmol/L Carbon Dioxide 26 27 (20-32) mmol/L BUN 22 18 (5-24) mg/dL Creatinine 1.2 1.2 (0.5-1.5) mg/dL Glucose 120 H 100 (60-115) mg/dL Calcium 9.6 9.8 (8.4-10.6) mg/dL Adrenal panel 04/24/25 04/25/25 Range/Units 23:35 08:20 Sodium 140 141 (135-149) mmol/L Potassium 3.6 4.3 (3.6-5.1) mmol/L Chloride 103 106 (96-114) mmol/L Carbon Dioxide 26 27 (20-32) mmol/L BUN 22 18 (5-24) mg/dL Creatinine 1.2 1.2 (0.5-1.5) mg/dL Glucose 120 H 100 (60-115) mg/dL Calcium 9.6 9.8 (8.4-10.6) mg/dL Total Bilirubin 1.2 1.0 (0.1-1.5) mg/dL AST 34 26 (12-35) U/L ALT 50 41 (4-50) U/L Alkaline Phosphatase 47 43 (40-150) U/L Total Protein 7.6 6.8 (6.0-8.3) g/dL Albumin 4.8 4.3 (3.3-5.0) g/dL All other labs normal. Imaging CT scan - chest: report reviewed and image reviewed Abdominal ultrasound report/results: report reviewed and image reviewed Additional studies: US abdomen INDICATION: Abdominal pain TECHNIQUE: Ultrasound abdomen limited. Sonographic images of the right upper quadrant were obtained using gómez-scale and color Doppler images. COMPARISON: 04/24/2025 FINDINGS: The sensitivity and specificity of the exam are moderately limited by the patient`s body habitus and overlying bowel gas. Liver: The liver parenchyma is normal in echotexture. Gallbladder: No gallstones or sludge seen in the lumen. Mild gallbladder wall thickening is noted measuring 5 mm. No pericholecystic fluid is present. No sonographic Weiner???s sign is present. Common bile duct: The common bile duct is not well visualized. No intrahepatic biliary ductal dilatation seen. Pancreas: The visualized portions of the pancreatic head and body are normal in appearance. Right Kidney: 12 cm. No hydronephrosis or ureterectasis is seen. Vascular: The visualized abdominal aorta and IVC are unremarkable. The visualized portal vein is patent with normal anterograde flow. IMPRESSION: 1. Mild gallbladder wall thickening is noted measuring 5 mm. This is nonspecific and can be seen with acute or chronic cholecystitis, hepatitis, cirrhosis, or congestive heart failure and clinical correlation is recommended. Dictated by Zeus Thomas MD @ 04/25/2025 1:57:[address] Abdomen: INDICATION: Rec epigastric abdominal pain TECHNIQUE: CT Abdomen and pelvis with i.v. contrast. Coronal and sagittal reformats were obtained. CONTRAST: 147 mL Isovue 370 COMPARISON: None FINDINGS: Lower chest: There is a 1 mm nodule present in the anterior right lower lobe, too small to further characterize. Liver: Unremarkable. Spleen: Unremarkable. Pancreas: Unremarkable. Gallbladder: Mild gallbladder wall edema is seen. Kidney: Unremarkable. No kidney or ureteral stones or obstruction seen. Adrenal: Unremarkable. Bowel: The distal esophagus is fluid-filled and mildly distended, likely due to gastroesophageal reflux. Etrz-nj-leaqjjfl fluid distention of the stomach is noted. There is a gasless density near the ileocecal valve without any apparent obstruction of the terminal ileum. This is most likely due to small bowel contents incompletely mixing with cecal stool. Previous appendectomy noted with no significant appendiceal stump identified. The appendix is not identified. Vascular: Unremarkable. Lymph: Unremarkable. Peritoneum: Unremarkable. No pneumoperitoneum is seen. No significant ascites is noted. Pelvis: Unremarkable. Soft tissue: Unremarkable. Bone: Unremarkable for age. IMPRESSIONS: 1. The distal esophagus is fluid-filled and mildly distended, likely due to gastroesophageal reflux. 2. Mild gallbladder wall edema is seen. Assessment with ultrasound may be helpful to exclude cholecystitis. Dictated by Zeus Thomas MD @ 04/24/2025 11:57:51 PM Progress Note:A&P Assessment and plan (1) Cholecystitis: Status: Acute (2) Obesity (BMI 35.0-39.9 without comorbidity): Status: Acute (3) GERD (gastroesophageal reflux disease): Status: Acute Plan the patient is a 39-year-old male with epigastric pain, now resolved and gallbladder wall thickening seen on CT scan and ultrasound without evidence of cholelithiasis, concerning for acalculous cholecystitis. He also has fairly significant GERD symptoms and on CT scan does have fluid in his esophagus. He has not had an EGD. I spoke to the patient and his about options. We could try a trial of p.o. intake since his pain is gone and his labs are normal and if his symptoms resolve he could discharge home and HIDA scan could be obtained to definitive diagnosis gallbladder pathology. If that is normal then I would recommend EGD as scheduled. If he develops pain with eating then we can plan on cholecystectomy tomorrow for presumed acalculous cholecystitis. We could also plan on cholecystectomy given the findings of gallbladder wall thickening. We discussed gallbladder anatomy and pathology. I explained that acalculous cholecystitis is a new usual in healthy patient. It is possible that he does have small stones or sludge that are causing a blockage and causing the gallbladder thickening. Based on his symptoms, I think it is reasonable to take out his gallbladder. We discussed risks of surgery including bleeding, infection, injury to other structures, need for conversion to open as well as recovery. We also discussed his reflux symptoms and that he does have fluid in his esophagus on CT scan which would suggest severe reflux and or esophageal narrowing. I do think EGD will be pertinent for him regardless of resolution of symptoms after cholecystectomy. After discussion, he and his would like to proceed with cholecystectomy given That his symptoms have been persistent. I think this is reasonable. We will plan on cholecystectomy tomorrow.
--- NOTE | 2025-04-25 12:57 | PM.IMPN1 ---
Assessment and Plan Assessment and plan (1) Cholecystitis: Problem comment: - General Surgery referral Status: Acute (2) GERD (gastroesophageal reflux disease): Problem comment: - continue PPI Status: Acute (3) Elevated blood pressure reading: Problem comment: - needs to establish PCP for further workup/management Status: Acute Subjective Date Seen: 04/25/25 Interval history: Valdo was admitted to the hospital last night for epigastric pain. Known GERD, on PPI. Has appt with GI for EGD and colonoscopy within the next 2 weeks. Also concern for mild cholecystitis. LFTs, WBC reassuring. Seeing General Surgery today to discuss plan. Exam Narrative: Exam Narrative: GEN: Alert and oriented HEENT: EOMIs bilaterally, no scleral icterus CV: RRR, No concerning murmurs R: LCTA bilaterally without concerning wheezing Ab: Soft and nontender, negative Weiner's sign Ext: wwp, no concerning edema Skin: No concerning skin lesions or rashes on exposed skin Neuro: Nonfocal Psych: Appropriate Const: Vital Signs, click to edit/add: Vital Signs - 24 hr 04/24/25 23:05 04/24/25 23:40 04/25/25 00:00 Temperature 98.7 F Pulse Rate [Left P ulse Oximeter] 90 82 Pulse Rate [Pulse Oximeter] Respiratory Rate 18 20 Blood Pressure [Le ft Arm] Blood Pressure [Ri ght Upper Arm] 178/121 H 164/94 H Pulse Oximetry 99 99 100 Oxygen Delivery Me thod Room Air Room Air 04/25/25 00:30 04/25/25 03:09 04/25/25 03:09 Temperature 98.9 F Pulse Rate [Left P ulse Oximeter] 88 Pulse Rate [Pulse Oximeter] 74 Respiratory Rate 16 16 Blood Pressure [Le ft Arm] 157/119 H Blood Pressure [Ri ght Upper Arm] 154/92 H Pulse Oximetry 97 97 97 Oxygen Delivery Me thod Room Air Room Air Room Air 04/25/25 07:00 04/25/25 07:00 04/25/25 10:05 Temperature 98.4 F 98.1 F Pulse Rate [Left P ulse Oximeter] Pulse Rate [Pulse Oximeter] 72 72 72 Respiratory Rate 18 18 16 Blood Pressure [Le ft Arm] 154/100 H 168/114 H Blood Pressure [Ri ght Upper Arm] Pulse Oximetry 95 95 Oxygen Delivery Me thod Room Air 06/04/25 11:00 Temperature 98.1 F Pulse Rate [Left P ulse Oximeter] Pulse Rate [Pulse Oximeter] 72 Respiratory Rate 16 Blood Pressure [Le ft Arm] 168/114 H Blood Pressure [Ri ght Upper Arm] Pulse Oximetry 95 Oxygen Delivery Me thod Room Air Labs Labs: Laboratory Results - last 24 hr 04/24/25 04/25/25 23:35 08:20 WBC 10.54 9.05 RBC 5.18 5.06 Hgb 16.1 15.5 Hct 45.1 44.3 MCV 87 88 MCH 31 31 MCHC 36 35 RDW Coeff of Thai 12.4 12.5 Plt Count 176 163 Neut % (Auto) 76.1 H 62.4 Lymph % (Auto) 15.1 L 25.2 [place] % (Auto) 6.1 9.2 Eos % (Auto) 1.4 2.4 Baso % (Auto) 0.4 0.7 Neut # (Auto) 8.00 H 5.65 Lymph # (Auto) 1.60 2.28 [place] # (Auto) 0.60 0.80 Eos # (Auto) 0.15 0.22 Baso # (Auto) 0.04 0.06 Abs Immat Gran (auto) 0.10 0.01 Imm/Tot Granulo (auto) 0.9 0.1 Sodium 140 141 Potassium 3.6 4.3 Chloride 103 106 Carbon Dioxide 26 27 Anion Gap 11 8 BUN 22 18 Creatinine 1.2 1.2 Estimated Creat Clear 93.40 93.40 Estimated GFR 79 79 Glucose 120 H 100 Lactate 1.3 Calcium 9.6 9.8 Total Bilirubin 1.2 1.0 Direct Bilirubin 0.1 AST 34 26 ALT 50 41 Alkaline Phosphatase 47 43 Troponin I < 0.01 C-Reactive Protein < 0.5 L Total Protein 7.6 6.8 Albumin 4.8 4.3 Lipase 170 148
--- NOTE | 2025-04-25 14:01 | PC.NURSE ---
Patient awaiting lap cholecystectomy 04/26/2025 @ [id number]. Patient denies pain, is tolerating just ice chips. PIV in right AC is patent.
--- NOTE | 2025-04-25 15:27 | PM.DS1 ---
DS: Providers Provider Date Seen: 04/25/25 Date of admission: 04/25/25 03:04 Primary care physician: Not a Local Provider Admitting Clinician: Lisa Shook MD Consults: 04/25/25 08:03 Consult to Physician [CONS] Routine Comment: Consulting Provider: General Surgery, [facility] Has provider been notified: Yes Attending Physician on discharge: CRISTOFER Alvarez, [facility]UDWIGC [facility] Date of Discharge: 04/25/25 DS: Diagnosis Discharge Diagnosis (1) Cholecystitis: Status: Acute Problem details: - General Surgery referral Patient seen by General surgery, recommending cholecystectomy. Does not require antibiotics. Currently using only Tylenol as needed for pain management. Will discharge to home and return to surgical center tomorrow, 04/26/2025, at 10:00 a.m. for same day procedure. (2) GERD (gastroesophageal reflux disease): Status: Acute Problem details: - continue PPI (3) Elevated blood pressure reading: Status: Acute Problem details: - needs to establish PCP for further workup/management DS: Summary Hospital Course Hospital Course: Patient was admitted, underwent general surgery consultation, recommending cholecystectomy. This will be completed in the outpatient setting, same-day surgery, tomorrow 04/26/2025. Patient is discharged to follow a bland diet for the rest of the day. NPO at midnight. Sips of water with pain pills as needed. Return to surgical center tomorrow at 10:00 a.m.. Status at Discharge Functional status at discharge: independent ambulation Overall status at discharge: patient is back to baseline Time Spent with Patient Time attestation: Total time spent providing and/or coordinating discharge services: Time spent: Greater than 30 minutes Exam Narrative: Exam Narrative: PHYSICAL EXAM General: Pleasant, conversant, NAD Cardiovascular: RRR Pulmonary: No dyspnea Neurological: Alert, answering questions appropriately Skin: Warm, dry. Const: Vital Signs, click to edit/add: Vital Signs - 24 hr 04/24/25 23:05 04/24/25 23:40 04/25/25 00:00 Temperature 98.7 F Pulse Rate [Left P ulse Oximeter] 90 82 Pulse Rate [Pulse Oximeter] Respiratory Rate 18 20 Blood Pressure [Le ft Arm] Blood Pressure [Ri ght Upper Arm] 178/121 H 164/94 H Pulse Oximetry 99 99 100 Oxygen Delivery Me thod Room Air Room Air 04/25/25 00:30 04/25/25 03:09 04/25/25 03:09 Temperature 98.9 F Pulse Rate [Left P ulse Oximeter] 88 Pulse Rate [Pulse Oximeter] 74 Respiratory Rate 16 16 Blood Pressure [Le ft Arm] 157/119 H Blood Pressure [Ri ght Upper Arm] 154/92 H Pulse Oximetry 97 97 97 Oxygen Delivery Me thod Room Air Room Air Room Air 04/25/25 07:00 04/25/25 07:00 04/25/25 10:05 Temperature 98.4 F 98.1 F Pulse Rate [Left P ulse Oximeter] Pulse Rate [Pulse Oximeter] 72 72 72 Respiratory Rate 18 18 16 Blood Pressure [Le ft Arm] 154/100 H 168/114 H Blood Pressure [Ri ght Upper Arm] Pulse Oximetry 95 95 Oxygen Delivery Me thod Room Air 04/25/25 11:00 Temperature 98.1 F Pulse Rate [Left P ulse Oximeter] Pulse Rate [Pulse Oximeter] 72 Respiratory Rate 16 Blood Pressure [Le ft Arm] 168/114 H Blood Pressure [Ri ght Upper Arm] Pulse Oximetry 95 Oxygen Delivery Me thod Room Air DS: Data Data Completed and Pending Labs on day of discharge: Labs from last 24 hours 04/25/25 04/24/25 08:20 23:35 WBC 9.05 10.54 RBC 5.06 5.18 Hgb 15.5 16.1 Hct 44.3 45.1 MCV 88 87 MCH 31 31 MCHC 35 36 RDW Coeff of Thai 12.5 12.4 Plt Count 163 176 Neut % (Auto) 62.4 76.1 H Lymph % (Auto) 25.2 15.1 L [place] % (Auto) 9.2 6.1 Eos % (Auto) 2.4 1.4 Baso % (Auto) 0.7 0.4 Neut # (Auto) 5.65 8.00 H Lymph # (Auto) 2.28 1.60 [place] # (Auto) 0.80 0.60 Eos # (Auto) 0.22 0.15 Baso # (Auto) 0.06 0.04 Abs Immat Gran (auto) 0.01 0.10 Imm/Tot Granulo (auto) 0.1 0.9 Sodium 141 140 Potassium 4.3 3.6 Chloride 106 103 Carbon Dioxide 27 26 Anion Gap 8 11 BUN 18 22 Creatinine 1.2 1.2 Estimated Creat Clear 93.40 93.40 Estimated GFR 79 79 Glucose 100 120 H Lactate 1.3 Calcium 9.8 9.6 Total Bilirubin 1.0 1.2 Direct Bilirubin 0.1 AST 26 34 ALT 41 50 Alkaline Phosphatase 43 47 Troponin I < 0.01 C-Reactive Protein < 0.5 L Total Protein 6.8 7.6 Albumin 4.3 4.8 Lipase 148 170 Discharge Plan Discharge Disposition: Home, Self-Care Date of Admission: 04/25/25 03:04 Attending Provider on Discharge: Giulia Benjamin Consulting Providers: Tosin Stoll Primary Care Provider: Provider,Not a Local Condition: Stable Anticipated Discharge Date/Time: 04/25/25 15:22 Discharge Medications: New oxycodone 5 mg capsule 5 mg PO Q6H PRN (Reason: pain) Qty: 7 0RF Continued omeprazole 20 mg capsule,delayed release(DR/EC) 20 mg PO DAILY Antacid Ext Str (calcium carb) 300 mg (750 mg) tablet,chewable 600 mg PO DAILY Gas Relief (simethicone) 250 mg capsule 250 mg PO DAILY PRN Discharge Orders: Discharge Order (Routine); Ordered 04/25/25 Ordered By: Justine Casanova Additional Instructions: You will have your surgery tomorrow, 04/26/25. Eat a bland diet today. Do not eat or drink anything after midnight tonight. You may take sips of water with pain pills should you need any. Return to the [facility] at 10:00AM 04/26/25. Bump up your Omeprazole to 20mg twice/day. BLAND diet. Keep appointments for EGD/Colonoscopy. Great idea to have a local PCP to help with followup and specialty management, they can also help you with Blood Pressure management (your Blood Pressure was high here and you likely need to start medication for this). Activity Level: Activity as Tolerated Discharge Diet: Other Diet Detail: bland Follow Up Appointments: Provider,Not a Local [Primary Care Provider, Family Practice] [facility] Instructions
--- NOTE | 2025-04-25 16:50 | PC.NURSE ---
Patient discharged home with spouse in stable condition.Discharge instructions given to patient and spouse regarding surgery date and time. Both patient and verbalized understanding. Discharge paperwork given to patient and . Belongings taken home by patient and .
== END 2025-04-25 16:49 | disposition home or self-care (01) ==
LOC: ED 04-25 02:48 → MEDSURG 04-25 03:06
PROVIDERS: Family Medicine; Admitting Provider Internal Medicine; Emergency Provider Family Medicine; Visit Provider Internal Medicine
DX: K81.9 Cholecystitis, unspecified (principal); R10.13 Epigastric pain; R03.0 Elevated blood-pressure reading, without diagnosis of hypertension; K21.9 Gastro-esophageal reflux disease without esophagitis; R10.11 Right upper quadrant pain; M54.89 Other dorsalgia; E66.9 Obesity, unspecified; Z68.39 Body mass index [BMI] 39.0-39.9, adult; Z90.49 Acquired absence of other specified parts of digestive tract
CPT/HCPCS: 36415; 74177; 76705; 80053; 82248; 83605; 83690; 84484; 85025; 86140; 93005; 94761; 96374; 99285; A9270; G0378; J1885; Q9967

== ENCOUNTER 2025-04-26 09:54 | Day surgery (SDC) | payer OTHER, SELFPAY ==
[2025-04-26] VITALS (13 sets, daily range): BP systolic 131–186; BP diastolic 71–121; PULSE 68–97; RESP 12–16; TEMP 36.3–36.7; O2SAT 90–98; BMI 39.5
[2025-04-26] MEDS: LACTATED RINGERS 1000 ML 1,000 ML 100 ML IV (10:25)
[2025-04-26] MEDS: SODIUM CHLORIDE 0.9 % (FLUSH) 10 ML SYRINGE IVF (10:25)
[2025-04-26] MEDS: CLINDAMYCIN 900 MG/50 ML-D5W IVPB (11:55)
--- NOTE | 2025-04-26 12:00 | P.ANES_ITS ---
Anesthesia Charges Start Date/Time Anesthesia Start Date: 04/26/25 Anesthesia Start Time: 11:38 Stop Date/Time Anesthesia Stop Date: 04/26/25 Anesthesia Stop Time: 14:17 Coding CPT Codes CPT Codes: ANESTH SURG UPPER ABDOMEN - 40727 ([id number]) P3 - PATIENT W/SEVERE SYS DISEASE, QK - SENIOR HOUSEKEEPER 2-4 CNCRNT ANES PROC, QX - PICKLE WATER PUMP OPERATOR SVC W/ MD MED DIRECTION
--- NOTE | 2025-04-26 12:00 | W.ANESCHARGE ---
Anesthesia Charges Start Date/Time Anesthesia Start Date: 04/26/25 Anesthesia Start Time: 11:38 Stop Date/Time Anesthesia Stop Date: 04/26/25 Anesthesia Stop Time: 14:17 Coding CPT Codes CPT Codes: ANESTH SURG UPPER ABDOMEN - 47959 ([id number]) P3 - PATIENT W/SEVERE SYS DISEASE, QK - FREIGHT SORTER 2-4 CNCRNT ANES PROC, QX - WASTE ELIMINATION SVC W/ MD MED DIRECTION
[2025-04-26] MEDS: BUPIVACAINE 0.25% 30 ML 20 ML INJECTION (12:08)
--- NOTE | 2025-04-26 12:12 | SUR.OPER ---
PATIENT QUESTIONS ANSWERED SATISFACTORILY PREOPERATIVELY. PATIENT BROUGHT TO OR #2 PER CART. Patient positioned supine on OR #2 bed. The perioperative team supported arms bilaterally on arm boards. Final approval of positioning by surgeon.
--- NOTE | 2025-04-26 12:18 | SUR.OPER ---
AT THE ABDOMINAL SKIN FOLD, 4-5 STRETCH HALE ARE RAW/REDDENED/IRRITATED. WORSENED BY CLIPPING HAIR.
--- NOTE | 2025-04-26 14:01 | PM.GSPRC ---
Operative Note Date of procedure: 04/26/25 Pre-op diagnosis: Acute acalculous cholecystitis Post-op diagnosis: Same Type of Procedure: Laparoscopic cholecystectomy Indications: The patient is a 39-year-old male with a history of recurrent upper abdominal pain. Ultrasound of the abdomen previously was within normal limits, however he developed acute pain and presented to the emergency department. Workup revealed a thickened gallbladder as well as esophagitis. This was seen on CT scan. Ultrasound of the abdomen also showed a thickened gallbladder wall with out stones. The patient's pain improved, however after discussion of his symptoms, it was felt as though he may have cholecystitis. We discussed options and because of his increasing severity of symptoms, he elected to proceed with surgery urgently. Procedure Description: After discussing the risks and benefits of the procedure, the patient signed informed consent.? The operative site was marked and the patient was brought to the operating room and placed on the operating table in supine position.? Care was taken to pad the patient's pressure points.?? The patient was then intubated by anesthesia.?? The operative site was then prepped and draped in the usual sterile fashion.? A time-out was then performed. Entrance to the abdomen was gained via a 5 mm Visiport in the left upper quadrant. The abdomen was insufflated and briefly surveyed for signs of injury. There was none. A 10 mm umbilical port was placed as well as 2 working ports along the right costal margin, all under direct vision. The patient was then placed in reverse Trendelenburg position with the right side up. The gallbladder fundus was grasped and retracted cephalad. The gallbladder was noted to be inflamed and thickened. The patient had a large amount of omental fat which made it difficult to visualize the infundibulum of the gallbladder despite steep reverse Trendelenburg. An additional 5 mm port was placed in the left mid abdomen to help retract the colon and omental fat inferiorly. The infundibulum was grasped. A combination of hook cautery and blunt dissection was used to carefully dissect out the cystic duct and artery until they could clearly be seen entering the gallbladder without any intervening structures. Of note, the gallbladder was very inflamed. The tissue was firm and bled easily. The cystic artery was clipped and divided with scissors. The cystic duct was noted to be thickened and firm. It was just slightly too large to be ligated with a 5 mm clip. Therefore, I elected to divide this with an endoloop. A clip was placed on the cystic duct at the gallbladder neck. The cystic duct was then divided close to the gallbladder neck. Thick sludgy bile flowed from the cystic duct. I palpated the cystic duct. It was quite thickened and firm however, no stones emerged. I palpated more distally on the cystic duct carefully to see if there were any obstructing stones that could be pushed out of the opening, however there did not appear to be any. A PDS endoloop was then placed around the cystic duct stump, however it slipped off of the end of the cystic duct. Therefore, I dissected the cystic duct posteriorly very carefully using cautery to length in the cystic duct stump. I was then successful in placing 2 PDS sutures around the cystic duct stump to ligate it. The gallbladder was then dissected off of the cystic plate. There were small bleeding vessels along the edge of the gallbladder on the liver bed which were clipped for hemostasis. The gallbladder was then removed from the abdomen using an Endo-Catch bag. The abdomen was then irrigated and bile that had spilled was suctioned from the abdomen. The gallbladder bed was surveyed for hemostasis which appeared adequate. Because of the friability and inflammation of the gallbladder during the case, I did place a piece of Surgicel in the gallbladder bed. The umbilical port fascia was closed with 0 Vicryl using a Piero-Oscar device. The remaining ports were then removed and the abdomen desufflated. The skin was closed with absorbable subcuticular suture. Sterile dressings were applied. Instrument sponge and needle counts were correct at the end of the case. The patient was then woken and transferred to the PACU in stable condition. The patient tolerated the procedure well. Findings: Markedly inflamed gallbladder with thickened cystic duct. No obvious stones though thick sludge was found. Anesthesia: GETA Surgeon: Tosin Stoll MD Estimated blood loss (mL): 50 Specimen: Gallbladder Condition: stable Disposition: PACU
[2025-04-26] MEDS: LACTATED RINGERS 1000 ML 1,000 ML 75 ML IV (14:05)
[2025-04-26] MEDS: BUPIVACAINE 0.25% 30 ML INJECTION (14:09)
--- NOTE | 2025-04-26 14:21 | P.ANES_ITS ---
Anesthesia Charges Start Date/Time Anesthesia Start Date: 04/26/25 Anesthesia Start Time: 11:38 Stop Date/Time Anesthesia Stop Date: 04/26/25 Anesthesia Stop Time: 14:17 Coding CPT Codes CPT Codes: ANESTH SURG UPPER ABDOMEN - 02735 ([id number]) P3 - PATIENT W/SEVERE SYS DISEASE, QK - PHOTOGRAPHY COORDINATOR 2-4 CNCRNT ANES PROC
--- NOTE | 2025-04-26 14:21 | W.ANESCHARGE ---
Anesthesia Charges Start Date/Time Anesthesia Start Date: 04/26/25 Anesthesia Start Time: 11:38 Stop Date/Time Anesthesia Stop Date: 04/26/25 Anesthesia Stop Time: 14:17 Coding CPT Codes CPT Codes: ANESTH SURG UPPER ABDOMEN - 87864 ([id number]) P3 - PATIENT W/SEVERE SYS DISEASE, QK - POISING INSPECTOR 2-4 CNCRNT ANES PROC
[2025-04-26] MEDS: HYDROmorphone 0.5 mg/0.5 ml inj IVP (14:31)
[2025-04-26] MEDS: fentaNYL 100 MCG/2 ML inj 50 MCG IVP (14:37)
[2025-04-26] MEDS: HYDROCODONE-ACETAMIN 5-325 MG 1 TAB PO (15:14)
[2025-04-26] MEDS: ACETAMINOPHEN 325 MG TABLET 650 MG PO (15:14)
--- NOTE | 2025-04-26 15:26 | SUR.PHASEII ---
Patient dozing. O2 sats to 87%. Patient encouraged to deep breath and cough. 3L NC O2 sats to 97%.
--- NOTE | 2025-04-26 16:25 | SUR.PHASEII ---
1600: Pharmacy Ancillary in room to review discharge instructions. Pt switched to room air. O2 sats 92-94% RA throughout discharge teaching. Patient baseline 95% O2 RA in preop. Patient states readiness for discharge.
== END 2025-04-26 16:25 | disposition home or self-care (01) ==
LOC: OR 09:55
PROVIDERS: Visit Provider Surgery
PROC: 0FT44ZZ Resection of Gallbladder, Percutaneous Endoscopic Approach (ICD-10-PCS; CPT 47562; principal; 2025-04-26 11:15)
DX: K81.0 Acute cholecystitis (principal)
CPT/HCPCS: 47562; 00790; A9270; J0330; J0665; J0736; J1100; J1171; J2250; J2405; J2704; J2710; J3010; J3490; J7120